=== PATIENT | male | born 1980 | race Caucasian/White ===

== ENCOUNTER 2017-02-01 11:08 | Emergency (ER) | payer BC ==
[2017-02-01 11:21] VITALS: BP 131/72; PULSE 71; RESP 16; TEMP 97.7
--- NOTE | 2017-02-01 11:33 | ED ---
ENT HPI - General Chief complaint: Dental/Oral [facility] Source: patient Mode of arrival: ambulatory Limitations: no limitations - History of Present Illness Initial comments: Patient is a 36-year-old male percents for evaluation for a "canker sore ". Past medical history as below. 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 This current outbreak has lasted over the last 2 days. States it is very tender. He is typically prescribed a medication called Dabecrotol which she describes as a chemical cautery. He is not been able to refill his prescription for it secondary to a shortage in the medication. He came here in hopes that we had some in the hospital to give him. He is tried uper-ghw-imclcfr remedies with limited relief. Denies any drooling, difficulty swallowing, change in voice. Denies any systemic symptoms such as fever, chills, headache and changes in vision, URI symptoms, shortness breath, cough, chest pain, nausea or vomiting, diarrhea , pain or burning with urination. - Related Data Home Medications Medication Instructions Recorded Confirmed Multivitamins, Thera [Multivitamin 1 tab PO DAILY 09/17/14 09/28/14 (formulary)] Previous Rx's Medication Instructions Recorded Hydrocodone/Acetaminophen [[place] 1 - 2 each PO Q6HR PRN #120 tab 09/29/14 5-325] Allergies Allergy/AdvReac Type Severity Reaction Status Date / Time No Known Allergies Allergy Verified 02/01/17 11:21 Review of Systems ROS Statement: Those systems with pertinent positive or pertinent negative responses have been documented in the HPI. ROS Other: All systems not noted in ROS Statement are negative. Past Medical History Additional Past Medical History / Comment(s): MIGRAINE HEADACHE History of Any Multi-Drug Resistant Organisms: None Reported Past Surgical History: No Surgical Hx Reported Additional Past Surgical History / Comment(s): neck surg cervical vertebrae Past Anesthesia/Blood Transfusion Reactions: No Reported Reaction Past Psychological History: No Psychological Hx Reported Smoking Status: Never smoker Past Alcohol Use History: Occasional Past Drug Use History: None Reported - Past Family History Mother Family Medical History: No Reported History General Exam Limitations: no limitations General appearance: alert, in no apparent distress Head exam: Present: atraumatic, normocephalic, normal inspection Eye exam: Present: normal appearance, PERRL, EOMI. Absent: scleral icterus, conjunctival injection, periorbital swelling ENT exam: Present: normal exam, mucous membranes moist, other (There is a shallow ulcer in the left lower lip with surrounding erythema consistent with HSV.) Neck exam: Present: normal inspection, other (No anterior lymph nodes). Absent : tenderness, meningismus, lymphadenopathy Respiratory exam: Present: normal lung sounds bilaterally. Absent: respiratory distress, wheezes, rales, rhonchi, stridor Cardiovascular Exam: Present: regular rate, normal rhythm, normal heart sounds. Absent: systolic murmur, diastolic murmur, rubs, gallop, clicks GI/Abdominal exam: Present: soft, normal bowel sounds. Absent: distended, tenderness, guarding, rebound, rigid Extremities exam: Present: normal inspection, full ROM, normal capillary refill. Absent: tenderness, pedal edema, joint swelling, calf tenderness Back exam: Present: normal inspection Neurological exam: Present: alert, oriented X3, CN II-XII intact Psychiatric exam: Present: normal affect, normal mood Skin exam: Present: warm, dry, intact, normal color. 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 Came an attempt to get a medication that is helped him in the past which we unfortunately do not have in the hospital. Discussed dorb-szs-hpzpsoa remedies. Frequent salt water rinses. We'll wait until next week until his prescription can be filled. I discussed signs and symptoms on when to return to the emergency department for further evaluation. Comfortable with discharge home and will follow-up. Disposition Clinical Impression: Canker sores oral Disposition: HOME SELF-CARE Condition: Good Instructions: Canker Sores (ED) Referrals: Fareed Jamil MD [Primary Care Provider] - 1-2 days
== END 2017-02-01 12:03 | disposition home or self-care (01) ==
LOC: EC 11:08
DX: K12.0 Recurrent oral aphthae (principal); Z79.899 Other long term (current) drug therapy
CPT/HCPCS: 99282

== ENCOUNTER 2018-02-23 03:44 | Emergency (ER) | payer BC ==
[2018-02-23 03:51] VITALS: RESP 20; TEMP 97.7
[2018-02-23] MEDS ORDERED: SODIUM CHLORIDE 0.9% 2,000 ML IV STA (04:08)
[2018-02-23] MEDS ORDERED: ONDANSETRON 4 MG/2 ML VIAL IVP STA (04:08)
--- NOTE | 2018-02-23 04:10 | ED ---
Nausea/Vomiting/Diarrhea HPI - General Chief complaint: Nausea/Vomiting/Diarrhea Stated complaint: Vomiting,/Diarrhea Time Seen by Provider: 02/23/18 04:08 Source: patient Mode of arrival: ambulatory Limitations: no limitations - History of Present Illness Initial comments: Patient is a previously healthy 37-year-old male who presents the emergency department today for evaluation of sudden onset of abdominal cramping, nausea, vomiting and diarrhea. Patient reports he was in his usual state of health throughout the day yesterday, he ran errands during the day and had dinner out at a restaurant. He returned home and went to bed and awoke suddenly at 2 AM with sudden onset of nausea, vomiting, abdominal cramping and diarrhea. She reports that this is persisted for 2 hours and is feeling quite unwell. He has no history of anything similar to this. No history of GI pathology, ulcerative colitis, Crohn's or irritable bowel. spica bedside ate at the same restaurant but did have different food, she is not having any similar symptoms. - Related Data Previous Rx's Medication Instructions Recorded Dicyclomine [Bentyl] 10 mg PO QID #30 capsule 02/23/18 Ondansetron Odt [Zofran Odt] 4 mg PO Q8HR PRN #30 tab 02/23/18 Allergies Allergy/AdvReac Type Severity Reaction Status Date / Time No Known Allergies Allergy Verified 02/23/18 03:51 Review of Systems ROS Statement: Those systems with pertinent positive or pertinent negative responses have been documented in the HPI. ROS Other: All systems not noted in ROS Statement are negative. Past Medical History Additional Past Medical History / Comment(s): MIGRAINE HEADACHE History of Any Multi-Drug Resistant Organisms: None Reported Past Surgical History: Back Surgery Additional Past Surgical History / Comment(s): neck surg cervical vertebrae Past Anesthesia/Blood Transfusion Reactions: No Reported Reaction Past Psychological History: No Psychological Hx Reported Smoking Status: Never smoker Past Alcohol Use History: Occasional Past Drug Use History: None Reported - Past Family History Mother Family Medical History: No Reported History General Exam - General Exam Comments Initial Comments: Physical Exam GENERAL: appears dehydrated HENT: Normocephalic, Atraumatic. EYES: PERRL, EOMI PULMONARY: Unlabored respirations. No audible rales rhonchi or wheezing was noted. CARDIOVASCULAR: There is a regular rate and rhythm without any murmurs gallops or rubs. ABDOMEN: Soft and nontender with normal bowel sounds. SKIN: Skin is ashen and diaphoretic : Deferred NEUROLOGIC: Patient is alert and oriented x3. Moving all extremities spontaneously MUSCULOSKELETAL: Normal extremities with adequate strength and full range of motion. No lower extremity swelling or edema. No calf tenderness. PSYCHIATRIC: Normal psychiatric evaluation. Limitations: no limitations Limitations: no limitations Course Vital Signs 02/23/18 02/23/18 03:48 06:16 Temperature 97.7 F Pulse Rate 89 63 Respiratory 20 20 Rate Blood Pressure 125/80 105/68 O2 Sat by Pulse 100 97 Oximetry Medical Decision Making - Medical Decision Making Patient was seen and evaluated, patient to be needed, dehydrated Gqxvj-xn-uaam glucose was obtained though the patient has no history of diabetes went to ensure that this was not a new onset as the patient does appear quite dehydrated and unwell glucose 136 Labs were ordered. IV fluid bolus and Zofran ordered Labs were unremarkable aside from mild leukocytosis likely reactive Patient was reevaluated after IV fluids and Zofran and Bentyl. Patient reports resolution of the crampy abdominal pain, significant improvement in his nausea though he is still nauseated. He reports burning epigastric discomfort and a feeling of a sour stomach which makes him feel as though he doesn't want to attempt to eat or drink anything. Pepcid Reglan and Benadryl were ordered. Significant improvement in his nausea after Reglan and Benadryl. Resting comfortably ready for discharge home. - Lab Data Result diagrams: 02/23/18 04:50 02/23/18 04:50 Lab Results 02/23/18 02/23/18 02/23/18 Range/Units 04:37 04:50 04:50 WBC 12.1 H (3.8-10.6) k/uL RBC 5.59 (4.30-5.90) m/uL Hgb 15.9 (13.0-17.5) gm/dL Hct 48.0 (39.0-53.0) % MCV 85.9 (80.0-100.0) fL MCH 28.5 (25.0-35.0) pg MCHC 33.1 (31.0-37.0) g/dL RDW 13.0 (11.5-15.5) % Plt Count 144 L (150-450) k/uL Neutrophils % 91 % Lymphocytes % 3 % Monocytes % 4 % Eosinophils % 1 % Basophils % 0 % Neutrophils # 11.0 H (1.3-7.7) k/uL Lymphocytes # 0.4 L (1.0-4.8) k/uL Monocytes # 0.5 (0-1.0) k/uL Eosinophils # 0.1 (0-0.7) k/uL Basophils # 0.0 (0-0.2) k/uL Sodium 140 (137-145) mmol/L Potassium 4.7 (3.5-5.1) mmol/L Chloride 105 (98-107) mmol/L Carbon Dioxide 22 (22-30) mmol/L Anion Gap 13 mmol/L BUN 20 (9-20) mg/dL Creatinine 1.06 (0.66-1.25) mg/dL Est GFR (CKD-EPI)AfAm >90 (>60 ml/min/1.73 sqM) Est GFR (CKD-EPI)NonAf 89 (>60 ml/min/1.73 sqM) Glucose 139 H (74-99) mg/dL POC Glucose (mg/dL) 130 H (75-99) mg/dL POC Glu Director [employer] ID Arft, Chaitanya Calcium 9.9 (8.4-10.2) mg/dL Total Bilirubin 1.0 (0.2-1.3) mg/dL AST 25 (17-59) U/L ALT 33 (21-72) U/L Alkaline Phosphatase 56 (38-126) U/L Total Protein 7.7 (6.3-8.2) g/dL Albumin 4.6 (3.5-5.0) g/dL Amylase 58 (30-110) U/L Lipase 30 (23-300) U/L Disposition Clinical Impression: Food poisoning Disposition: HOME SELF-CARE Condition: Good Instructions: Acute Nausea and Vomiting (ED) Prescriptions: Dicyclomine [Bentyl] 10 mg PO QID #30 capsule Ondansetron Odt [Zofran Odt] 4 mg PO Q8HR PRN #30 tab PRN Reason: Nausea Is patient prescribed a controlled substance at d/c from ED?: No Referrals: Fareed Jamil MD [Primary Care Provider] - 1-2 days
[2018-02-23 04:39] LABS: Glucose,Whole Blood 130 mg/dL (75-99)
[2018-02-23] MEDS ORDERED: DICYCLOMINE 10 MG/ML 2 ML AMP IM STA (04:49)
[2018-02-23 05:06] LABS: Basophils % (A) 0 %; Eosinophils # (A) 0.1 k/uL (0-0.7); Eosinophils % (A) 1 %; HGB 15.9 gm/dL (13.0-17.5); Lymphocytes # (A) 0.4 k/uL (1.0-4.8); Lymphocytes % (A) 3 %; MCH 28.5 pg (25.0-35.0); MCHC 33.1 g/dL (31.0-37.0); MCV 85.9 fL (80.0-100.0); Mean Platelet Volume 8.5; Monocytes # (A) 0.5 k/uL (0-1.0); Monocytes % (A) 4 %; Neutrophils % (A) 91 %; Platelet Count 144 k/uL (150-450); RBC 5.59 m/uL (4.30-5.90); WBC 12.1 k/uL (3.8-10.6)
[2018-02-23 05:19] LABS: ALT 33 U/L (21-72); AST 25 U/L (17-59); Albumin 4.6 g/dL (3.5-5.0); Alkaline Phosphatase 56 U/L (38-126); Amylase 58 U/L (30-110); Anion Gap 13 mmol/L; Blood Urea Nitrogen 20 mg/dL (9-20); Calcium 9.9 mg/dL (8.4-10.2); Carbon Dioxide 22 mmol/L (22-30); Chloride 105 mmol/L (98-107); Glucose 139 mg/dL (74-99); Lipase 30 U/L (23-300); Potassium 4.7 mmol/L (3.5-5.1); Sodium 140 mmol/L (137-145); Total Protein 7.7 g/dL (6.3-8.2)
[2018-02-23] MEDS ORDERED: METOCLOPRAMIDE 5 MG/ML 2 ML VIAL IVP STA (05:52)
[2018-02-23] MEDS ORDERED: FAMOTIDINE 20 MG/2 ML VIAL IV STA (05:52)
[2018-02-23] MEDS ORDERED: diphenhydrAMINE 25 MG CAP PO STA (05:52)
[2018-02-23 06:17] VITALS: BP 105/68; PULSE 63
== END 2018-02-23 07:15 | disposition home or self-care (01) ==
LOC: EC 03:44
DX: A05.9 Bacterial foodborne intoxication, unspecified (principal); D72.829 Elevated white blood cell count, unspecified; E86.0 Dehydration; R61 Generalized hyperhidrosis
CPT/HCPCS: 36415; 80053; 82150; 83690; 85025; 99283; 96374; 96375 ×2; 96361 ×2; 96372; J0500; J2765; J2405

== ENCOUNTER 2018-06-06 23:19 | Emergency (ER) | payer BC ==
[2018-06-06 23:24] VITALS: TEMP 97.4
[2018-06-07] MEDS ORDERED: HYDROmorphone 0.5 MG/0.5 ML SYRINGE IVP STA ×2 (00:20→02:30)
[2018-06-07] MEDS ORDERED: DIAZEPAM 5 MG TAB PO STA (00:20)
[2018-06-07 01:36] LABS: Basophils % (A) 0 %; Eosinophils # (A) 0.1 k/uL (0-0.7); Eosinophils % (A) 1 %; HCT 42.5 % (39.0-53.0); HGB 14.2 gm/dL (13.0-17.5); Lymphocytes # (A) 1.6 k/uL (1.0-4.8); Lymphocytes % (A) 16 %; MCH 28.5 pg (25.0-35.0); MCHC 33.5 g/dL (31.0-37.0); Mean Platelet Volume 8.3; Monocytes # (A) 0.5 k/uL (0-1.0); Monocytes % (A) 5 %; Neutrophils # (A) 7.9 k/uL (1.3-7.7); Neutrophils % (A) 78 %; Platelet Count 155 k/uL (150-450); WBC 10.1 k/uL (3.8-10.6)
[2018-06-07 01:43] LABS: ALT 34 U/L (21-72); AST 20 U/L (17-59); Alkaline Phosphatase 59 U/L (38-126); Anion Gap 10 mmol/L; Blood Urea Nitrogen 12 mg/dL (9-20); Calcium 9.4 mg/dL (8.4-10.2); Carbon Dioxide 24 mmol/L (22-30); Chloride 104 mmol/L (98-107); Glucose 116 mg/dL (74-99); Potassium 4.3 mmol/L (3.5-5.1); Sodium 138 mmol/L (137-145); Total Bilirubin 0.6 mg/dL (0.2-1.3); Total Protein 6.8 g/dL (6.3-8.2)
--- NOTE | 2018-06-07 02:29 | ED ---
General Adult HPI - General Source: patient Mode of arrival: ambulatory Limitations: no limitations <Danielle Dotson - Last Filed: 06/07/18 02:37> <Nita aGrcia - Last Filed: 06/07/18 21:11> - General Chief complaint: Headache Stated complaint: Migraine/Bilateral Arm Tingling Time Seen by Provider: 06/06/18 23:40 - History of Present Illness Initial comments: 37yo male presents today for complaints. Patient states that he has history of chronic migraines which are often associated with nausea. Patient states around 3:30 PM he gradually began to develop one of his when he was described typical migraines. Patient states is throbbing pain with no radiation, he expresses photophobia and mild nausea. Patient denies vomiting, head injury. Patient states he has had chronic neck pain with previous surgery in 2014. Patient states today on and off his experienced paresthesias of the upper extremities he denies loss sensation muscle weakness, speech changes gait changes, diplopia or vision loss. He denies this being the worst headache of his life. Patient states he frequently experiences headaches that last longer than 12 hours. Patient has had previous MRI, since she was told he did not have any aneurysms. In addition patient states that on and off throughout the day he has had some shortness of breath he states at that time he felt anxious he's not sure if that is associated with the migraine. Patient denies any chest pain, back pain lower extremity edema recent travel history of cancer, history of DVT or PE, clotting disorder. She denies experienced this in the past. Patient denies history of diabetes hypertension. Patient is a lifelong time nonsmoker. Patient denies family history of myocardial infarction prior to the age of 50. Patient denies any upper respiratory symptoms cough fever chills or night sweats. Remaining review of system negative, patient denies any recent abdominal pain, dysuria or hematuria, constipation or diarrhea, or any other complaints. (Danielle Dotson) - Related Data Previous Rx's Medication Instructions Recorded Dicyclomine [Bentyl] 10 mg PO QID #30 capsule 02/23/18 Ondansetron Odt [Zofran Odt] 4 mg PO Q8HR PRN #30 tab 02/23/18 Allergies Allergy/AdvReac Type Severity Reaction Status Date / Time No Known Allergies Allergy Verified 06/06/18 23:24 Review of Systems ROS Other: All systems not noted in ROS Statement are negative. <Danielle Dotson - Last Filed: 06/07/18 02:37> ROS Other: All systems not noted in ROS Statement are negative. <Nita Garcia - Last Filed: 06/07/18 21:11> ROS Statement: Those systems with pertinent positive or pertinent negative responses have been documented in the HPI. Past Medical History Additional Past Medical History / Comment(s): MIGRAINE HEADACHE History of Any Multi-Drug Resistant Organisms: None Reported Past Surgical History: Back Surgery Additional Past Surgical History / Comment(s): neck surg cervical vertebrae Past Anesthesia/Blood Transfusion Reactions: No Reported Reaction Past Psychological History: No Psychological Hx Reported Smoking Status: Never smoker Past Alcohol Use History: Occasional Past Drug Use History: None Reported - Past Family History Mother Family Medical History: No Reported History <Danielle Dotson - Last Filed: 06/07/18 02:37> General Exam Limitations: no limitations <Danielle Dotson - Last Filed: 06/07/18 02:37> - General Exam Comments Initial Comments: General: The patient is awake and alert, in no distress, and does not appear acutely ill. Eye: +3mm pupils are equal, round and reactive to light, extra-ocular movements are intact. No nystagmus. No APD, no disconjugate gaze. Mild photophobia. There is normal conjunctiva bilaterally. No signs of icterus. Ears, nose, mouth and throat: There are moist mucous membranes and no oral lesions. Neck: The neck is supple, there is no tenderness or JVD. Cardiovascular: There is a regular rate and rhythm. No murmur, rub or gallop is appreciated. Respiratory: Lungs are clear to auscultation, respirations are non-labored, breath sounds are equal. No wheezes, stridor, rales, or rhonchi. Gastrointestinal: Soft, non-distended, non-tender abdomen without masses or organomegaly noted. There is no rebound or guarding present. Musculoskeletal: Normal ROM, no tenderness. Strength 5/5. Sensation intact. Radial pulses equal bilaterally 2+. Neurological: A&O x 3. CN II-XII intact, memory intact to immediately, interme diate and care home recall. Able to follow simple verbal. Able to name a common object (pen). High quality, labial (pa) and lingual (la) speech. Low quality posterior pharynx/larynx (ga) voice sounds. Able to express general knowledge (days in a week). No hemineglect or inattention noted. Finger agnosia (-) and spatially oriented. Light touch and temperature sensation present over the face, chest, abdomen, back, UE bilaterally, and LE bilaterally. Able to localize point during point localization b/l and extinction. No visible bulk atrophy, hypertrophy, fasciculations, or myoclonus of the UE or LE b/l. Full PROM in UE and LE b/l. Bilateral muscle strength 5/5 for the following muscles: deltoid, biceps, triceps, brachioradialis, wrist extensors/flexor, hip flexor, hip abductors/adductors, hamstrings, quadriceps, feet dorsiflexors/plantar flexors. Finger to nose, finger to the examiners finger, and heel to dang coordinated and accurate b/l. . Gait is coordinated and even in stride with tandem, toe and heel walk. Maintains balance with monopedal stance. (-) Romberg. (-) pronator drift. No nuchal rigidity. Skin: Skin is warm and dry and no rashes or lesions are noted. Psychiatric: Cooperative, appropriate mood & affect, normal judgment. (Danielle Dotson) Course Vital Signs 06/06/18 06/07/18 23:21 02:38 Temperature 97.4 F L Pulse Rate 72 62 Respiratory 18 16 Rate Blood Pressure 121/84 99/58 O2 Sat by Pulse 100 94 L Oximetry EKG Findings - EKG Comments: EKG Findings:: A 12-lead EKG was performed and shows the following: Rate is 78bpm, and rhythm is normal sinus with sinus arrhythmia. There are normal QRS complexes and normal R-wave progression. ST segments have no elevation or depression, and MD segments appear normal. MD interval 192 ms, QRS duration 96 ms, QT/QTC 408/465 ms. <Danielle Dotson - Last Filed: 06/07/18 02:37> Medical Decision Making - Lab Data Result diagrams: 06/07/18 00:37 06/07/18 00:37 <Danielle Dotson - Last Filed: 06/07/18 02:37> - Lab Data Result diagrams: 06/07/18 00:37 06/07/18 00:37 <Nita Garcia - Last Filed: 06/07/18 21:11> - Medical Decision Making 37-year-old male presenting for multiple complaints. Patient states characters difficulty is identical to that of his typical migraines. Patient has no focal neurological deficits. No fever or nuchal rigidity. Patient denies any current shortness of breath. Patient states he did have anxiety coinciding with shortness of breath experienced earlier. Heart Score 1. Wells for PE score 0. PERC (-). Vital signs within acceptable limits. No acute EKG findings. Patient appears well oxygen eating well room air. No signs of respiratory distress, lungs clear to auscultation. Patient states Dilaudid had previously helped with migraines. Upon reevaluation patient states symptoms are improving. Patient requesting discharge. At this time to be no concerning physical examination findings, description of migraine consistent with patient's previous chronic migraines, and low suspicion for acute cardiopulmonary process for etiology of shortness of breath experienced earlier this afternoon, which could have been atributed to anxiety as well as the UE parathesias, cervical radiculopathy not excluded as patient has mild midline tenderness of c-spine with previous cervical spine surgery. No history of trauma. I feel patient is st able for discharge. I discussed case with attending provider Dr. Garcia agreeable with plan of care at this time. patient is agreeable with plan of care, return parameters. He denies questions at this time. I instructed patient to follow-up with primary care provider in the next 1-2 days. Patient discharged appearing well (Danielle Dotson) I was available for consultation in the emergency department. The history and physical exam were done by the midlevel provider. I was consulted for this patient's care. I reviewed the case with the midlevel provider and based on their presentation of the patient, I agree with the assessment, medical decision making and plan of care as documented. (Nita Garcia) - Lab Data Lab Results 06/07/18 06/07/18 06/07/18 Range/Units 00:37 00:37 00:37 WBC 10.1 (3.8-10.6) k/uL RBC 5.00 (4.30-5.90) m/uL Hgb 14.2 (13.0-17.5) gm/dL Hct 42.5 (39.0-53.0) % MCV 85.0 (80.0-100.0) fL MCH 28.5 (25.0-35.0) pg MCHC 33.5 (31.0-37.0) g/dL RDW 13.0 (11.5-15.5) % Plt Count 155 (150-450) k/uL Neutrophils % 78 % Lymphocytes % 16 % Monocytes % 5 % Eosinophils % 1 % Basophils % 0 % Neutrophils # 7.9 H (1.3-7.7) k/uL Lymphocytes # 1.6 (1.0-4.8) k/uL Monocytes # 0.5 (0-1.0) k/uL Eosinophils # 0.1 (0-0.7) k/uL Basophils # 0.0 (0-0.2) k/uL Sodium 138 (137-145) mmol/L Potassium 4.3 (3.5-5.1) mmol/L Chloride 104 (98-107) mmol/L Carbon Dioxide 24 (22-30) mmol/L Anion Gap 10 mmol/L BUN 12 (9-20) mg/dL Creatinine 0.86 (0.66-1.25) mg/dL Est GFR (CKD-EPI)AfAm >90 (>60 ml/min/1.73 sqM) Est GFR (CKD-EPI)NonAf >90 (>60 ml/min/1.73 sqM) Glucose 116 H (74-99) mg/dL Calcium 9.4 (8.4-10.2) mg/dL Total Bilirubin 0.6 (0.2-1.3) mg/dL AST 20 (17-59) U/L ALT 34 (21-72) U/L Alkaline Phosphatase 59 (38-126) U/L Troponin I <0.012 (0.000-0.034) ng/mL Total Protein 6.8 (6.3-8.2) g/dL Albumin 4.0 (3.5-5.0) g/dL Disposition Is patient prescribed a controlled substance at d/c from ED?: No Time of Disposition: 02:27 <Danielle Dotson - Last Filed: 06/07/18 02:37> <Nita Garcia P - Last Filed: 06/07/18 21:11> Clinical Impression: Headache, Paresthesia of upper extremity, Shortness of breath Disposition: HOME SELF-CARE Condition: Good Instructions (If sedation given, give patient instructions): Acute Headache (ED) Referrals: Fareed Jamil MD [Primary Care Provider] - 1-2 days
[2018-06-07] MEDS ORDERED: diphenhydrAMINE 50 MG/ML 1 ML VIAL IVP STA (02:31)
[2018-06-07 02:43] VITALS: BP 99/58; PULSE 62; RESP 16
--- NOTE | 2018-06-07 04:00 | ED ---
General Adult HPI - General Chief complaint: Headache Stated complaint: Migraine/Bilateral Arm Tingling Time Seen by Provider: 06/06/18 23:40 Source: patient Mode of arrival: ambulatory Limitations: no limitations - History of Present Illness Initial comments: 37-year-old male with past medical history of migraine and previous cervical surgery presenting today for cc of headache, and on off b/l UE tingling. Patient states that he has had a migraine for about 4 hours he states it feel identical in characteristic to his previous migraine headaches. Patient states that they usually last about 7 hours or more. Denies sudden onset/ worst headache of his life. He also states that normally medications do not help alleviate the headache. He states sometimes Dilaudid helped. Patient states he has had extensive neurolgy workup and states he has no history of aneurysm. Patient states this is not what brought him to the emergency department this evening. He states during headache he had some neck pain and b/l UE tingling that has since resolved he also states he felt anxious and SOB he states this has since resolved. He denies diabetes, hypertension, previous PA, dyspnea on exertion, chest pain, back pain, nausea, vomiting, indigestion, jaw pain, shoulder pain, arm pain, recent travel, leg swelling. He states his was concerned of the symptoms and presented for evaluation. Patient denies diplopia, vision loss, weakness of the upper or lower extremities, facial asymmetry, speech or gait changes he denies dizziness, fever chills or night sweats, IV drug use. Remaining ROS (-). Upon arrival patient appears well, notoxic. No distress. - Related Data Previous Rx's Medication Instructions Recorded Dicyclomine [Bentyl] 10 mg PO QID #30 capsule 02/23/18 Ondansetron Odt [Zofran Odt] 4 mg PO Q8HR PRN #30 tab 02/23/18 Allergies Allergy/AdvReac Type Severity Reaction Status Date / Time No Known Allergies Allergy Verified 06/06/18 23:24 Review of Systems ROS Statement: Those systems with pertinent positive or pertinent negative responses have been documented in the HPI. ROS Other: All systems not noted in ROS Statement are negative. Past Medical History Additional Past Medical History / Comment(s): MIGRAINE HEADACHE History of Any Multi-Drug Resistant Organisms: None Reported Past Surgical History: Back Surgery Additional Past Surgical History / Comment(s): neck surg cervical vertebrae Past Anesthesia/Blood Transfusion Reactions: No Reported Reaction Past Psychological History: No Psychological Hx Reported Smoking Status: Never smoker Past Alcohol Use History: Occasional Past Drug Use History: None Reported - Past Family History Mother Family Medical History: No Reported History General Exam - General Exam Comments Initial Comments: General: The patient is awake and alert, in no distress, and does not appear acutely ill. Eye: +3 mm pupils are equal, round and reactive to light, extra-ocular movements are intact. No nystagmus. There is normal conjunctiva bilaterally. No signs of icterus. Mild photophobia Ears, nose, mouth and throat: There are moist mucous membranes and no oral lesions. Oropharynx was not erythematous there is no tonsillar enlargement exudates or lesions. Uvula midline. Tympanic membranes are not erythematous or is no effusions bulging or retraction. No tenderness to palpation of the mastoid. No anterior cervical lymphadenopathy. Rhinorrhea, clear and bilateral nares. No tripoding, no drooling. Neck: The neck is supple, there is no tenderness or JVD. No nuchal rigidity negative Brudzinski and Kernig Cardiovascular: There is a regular rate and rhythm. No murmur, rub or gallop is appreciated. Respiratory: Lungs are clear to auscultation, respirations are non-labored, breath sounds are equal. No wheezes, stridor, rales, or rhonchi. No retractions or abdominal breathing. Gastrointestinal: Soft, non-distended, non-tender abdomen without masses or organomegaly noted. There is no rebound or guarding present. Bowel sounds are unremarkable. Musculoskeletal: Normal ROM, no tenderness. Strength 5/5. Sensation intact. Radial pulses equal bilaterally 2+. Neurological: A&O x 3. CN II-XII intact, memory intact to immediately, intermediate and rodent exterminator recall. Able to follow simple verbal. Able to name a common object (pen). High quality, labial (pa) and lingual (la) speech. Low quality posterior pharynx/larynx (ga) voice sounds. Able to express general knowledge (days in a week). No hemineglect or inattention noted. Finger agnosia (-) and spatially oriented (identified L index finger touched R shoulder with L index finger). Light touch and temperature sensation present over the face, chest, abdomen, back, UE bilaterally, and LE bilaterally. Able to localize point during point localization b/l and extinction. No visible bulk atrophy, hypertrophy, fasciculations, or myoclonus of the UE or LE b/l. Full PROM in UE and LE b/l. Bilateral muscle strength 5/5 for the following muscles: deltoid, biceps, triceps, brachioradialis, wrist extensors/flexor, hip flexor, hip abductors/adductors, hamstrings, quadriceps, feet dorsiflexors/plantar flexors. Finger to nose, finger to the examiners finger, and heel to dang coordinated and accurate b/l. Coordinated and even demonstration of hand flip, finger to thumb, and toe tap b/l. . Gait is coordinated and even in stride with tandem, toe and heel walk. Maintains balance with monopedal stance. (-) Romberg. (-) pronator drift. No nuchal rigidity. (-) Brudzinskis and Kernig signs. Skin: Skin is warm and dry and no rashes or lesions are noted. No extremity edema. (-) Homans. Psychiatric: Cooperative Limitations: no limitations Course Vital Signs 06/06/18 06/07/18 23:21 02:38 Temperature 97.4 F L Pulse Rate 72 62 Respiratory 18 16 Rate Blood Pressure 121/84 99/58 O2 Sat by Pulse 100 94 L Oximetry Medical Decision Making - Medical Decision Making 37-year-old male presenting for multiple complaints. Patient states his migraine characteristic is similar to that of his typical migraines denies any changes or concerns. Denies sudden onset of being worse headache of his life. Patient given Dilaudid, states he had significant improvement with Dilaudid and Valium. Patient given additional dose. No focal neurological deficits. No concerning history, or red flags. Heart Score 1. Wells criteria for PE 0. PERC (-). No recent surgery, hx of cancer, immobilization. Pt EKG and CXR no acute findings troponin (-). I feel parathesias may be due to anxiety, vs radiculopathy or complex migraine. Pt has minimal risk factors for atherosclerotic disease. Patient is requesting discharge. After discussing case with attending Dr. Garcia I feel patient is stable for discharge with outpati ent f/u. Pt symptoms improved upon multiple reevaluation. Return parameters were discussed at length with patient he verbalized understanding. Pt discharged appearing well. Denies questions at htis time. Pt is to f/u with pcp in 1-2 days. - Lab Data Result diagrams: 06/07/18 00:37 06/07/18 00:37 Lab Results 06/07/18 06/07/18 06/07/18 Range/Units 00:37 00:37 00:37 WBC 10.1 (3.8-10.6) k/uL RBC 5.00 (4.30-5.90) m/uL Hgb 14.2 (13.0-17.5) gm/dL Hct 42.5 (39.0-53.0) % MCV 85.0 (80.0-100.0) fL MCH 28.5 (25.0-35.0) pg MCHC 33.5 (31.0-37.0) g/dL RDW 13.0 (11.5-15.5) % Plt Count 155 (150-450) k/uL Neutrophils % 78 % Lymphocytes % 16 % Monocytes % 5 % Eosinophils % 1 % Basophils % 0 % Neutrophils # 7.9 H (1.3-7.7) k/uL Lymphocytes # 1.6 (1.0-4.8) k/uL Monocytes # 0.5 (0-1.0) k/uL Eosinophils # 0.1 (0-0.7) k/uL Basophils # 0.0 (0-0.2) k/uL Sodium 138 (137-145) mmol/L Potassium 4.3 (3.5-5.1) mmol/L Chloride 104 (98-107) mmol/L Carbon Dioxide 24 (22-30) mmol/L Anion Gap 10 mmol/L BUN 12 (9-20) mg/dL Creatinine 0.86 (0.66-1.25) mg/dL Est GFR (CKD-EPI)AfAm >90 (>60 ml/min/1.73 sqM) Est GFR (CKD-EPI)NonAf >90 (>60 ml/min/1.73 sqM) Glucose 116 H (74-99) mg/dL Calcium 9.4 (8.4-10.2) mg/dL Total Bilirubin 0.6 (0.2-1.3) mg/dL AST 20 (17-59) U/L ALT 34 (21-72) U/L Alkaline Phosphatase 59 (38-126) U/L Troponin I <0.012 (0.000-0.034) ng/mL Total Protein 6.8 (6.3-8.2) g/dL Albumin 4.0 (3.5-5.0) g/dL Disposition Clinical Impression: Headache, Paresthesia of upper extremity, Shortness of breath Disposition: HOME SELF-CARE Condition: Good Instructions (If sedation given, give patient instructions): Acute Headache (ED) Is patient prescribed a controlled substance at d/c from ED?: No Referrals: Fareed Jamil MD [Primary Care Provider] - 1-2 days Time of Disposition: 04:09 (initial document information was lost on 06/07/18.)
--- NOTE | 2018-06-07 08:59 | XR ---
EXAMINATION TYPE: XR chest 2V DATE OF EXAM: 06/07/2018 COMPARISON: 09/21/2014 TECHNIQUE: PA and lateral views submitted. HISTORY: Pain FINDINGS:Preliminary report provided by stat rad The lungs are clear and there is no pneumothorax, pleural effusion, or focal pneumonia. Postsurgica l change overlying cervical spine. No overt failure. IMPRESSION: 1. No acute process.
== END 2018-06-07 02:43 | disposition home or self-care (01) ==
LOC: EC 23:19
DX: G43.909 Migraine, unspecified, not intractable, without status migrainosus (principal); R20.2 Paresthesia of skin; R06.02 Shortness of breath
CPT/HCPCS: 36415; 71046; 80053; 84484; 85025; 93005; 96374; 96375; 96376; 99283

== ENCOUNTER → 2018-06-06 | Outpatient (CLI) | payer BC ==
--- NOTE | 2018-06-06 19:43 | CONS ---
CONSULTATION DATE OF SERVICE: 06/06/2018 This patient is a 37-year-old gentleman who has been evaluated in the sleep center for possible obstructive sleep apnea-hypopnea syndrome. HISTORY OF PRESENT ILLNESS/SLEEP-WAKE EVALUATION: Patient's usual sleep schedule on working days is from 10:30 p.m. until 5:30 a.m., on weekends from 11:30 p.m. to 8:30 a.m. No problems with falling asleep. No TV in the bedroom. Patient prefers to sleep on the side position. He sleeps with his with witnessed snoring. Occasionally the patient wakes up from sleep with nocturia. No history of hypnagogic hallucinations, sleep paralysis or cataplexy. Patient rarely takes any naps. If he does, he may see vivid dreams. [place] Sleepiness Scale is 4. PAST MEDICAL HISTORY: Recently patient was observed to have irregular heart beats. Neck problems. Episodes of headaches, including migraine headaches. PAST SURGICAL HISTORY: Status post neck surgery for disc rupture. MEDICATIONS: None. SOCIAL HISTORY: Negative for smoking. Alcohol consumption occasional. FAMILY HISTORY: Hyperlipidemia, snoring, headaches, cancer. REVIEW OF SYSTEMS: Snoring, sometimes awakenings from sleep, episodes of headaches. PHYSICAL EXAMINATION: GENERAL: A pleasant gentleman without distress. VITAL SIGNS: BP 125/76, HR 69, RR 16, height 6 feet 3-1/2 inches, weight 229 pounds. Body mass index 28.2, oxygen saturation at room air 98%, temperature 98.5. HEENT: PERRLA, EOMI. Evaluation of oropharynx showed tongue protrudes midline. Moderately low position of soft palate. Mallampati III. NECK: Supple. No JVD. Thyroid is not palpable. LUNGS: Clear to percussion and to auscultation. Good air exchange. No wheezing or rhonchi. HEART: S1, S2 skipping beats. ABDOMEN: Soft and nontender. Bowel sounds are present. No organomegaly. EXTREMITIES: No clubbing or cyanosis. 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 Cranial nerves 2 to 7 intact. There is no fasciculation or atrophy. noted. No focal deficits observed. IMPRESSION: 1. Snoring, low position of soft palate, episodes of awakenings from sleep; possible obstructive sleep apnea-hypopnea syndrome. 2. Episodes of skipping beats by auscultation of the heart. 3. Status post neck surgery for disc rupture. 4. Episodes of headaches and migraines. PLAN: 1. Polysomnography for evaluation of patient's breathing during sleep. 2. CPAP/BiPAP titration if sleep study confirms obstructive sleep apnea-hypopnea syndrome. 3. Preferable position during sleep on the side. 4. No driving if patient feels any sleepiness. 5. I will see patient for follow up visit to explain results of testing and following plan. Thank you very much for referring this patient for consultation. Sincerely, Niraj Ruiz MD, PhD, FAASM Diplomat of [place] [employer] [employer] Early Childhood Coordinator of [facility] [place] MMODL / IJN: [id number] /
== END | disposition home or self-care (01) ==
LOC: SLEEP 16:22
PROVIDERS: ATTEND Internal Medicine
DX: R06.83 Snoring (principal); M27.8 Other specified diseases of jaws; I49.9 Cardiac arrhythmia, unspecified; Z86.69 Personal history of other diseases of the nervous system and sense organs; Z98.890 Other specified postprocedural states
CPT/HCPCS: 99211

== ENCOUNTER 2018-08-04 23:14 | Observation (INO) | payer BC ==
[2018-08-04 23:23] VITALS: RESP 18
[2018-08-04] MEDS ORDERED: ONDANSETRON 4 MG/2 ML VIAL IVP STA (23:46)
[2018-08-04] MEDS ORDERED: SODIUM CHLORIDE 0.9% 1,000 ML IV ONE (23:46)
[2018-08-04] MEDS ORDERED: DICYCLOMINE 20 MG TAB PO STA (23:46)
--- NOTE | 2018-08-04 23:49 | ED ---
Abdominal Pain HPI - General Source: patient Mode of arrival: ambulatory Limitations: no limitations <Alondra Medrano - Last Filed: 08/05/18 01:27> <Nita Garcia - Last Filed: 08/05/18 07:24> - General Chief Complaint: Abdominal Pain Stated Complaint: Nausea Time Seen by Provider: 08/04/18 23:41 - History of Present Illness Initial Comments: 38-year-old male presenting with sudden onset nausea and abdominal cramping that began 45 minutes prior to arrival. Patient denies any vomiting or diarrhea. He admits to generalized abdominal cramping. Patient states he normally gets symptoms like this with migraines but has no headache at this time. It is were out to dinner that she is asymptomatic. He denies history of inflammatory bowel disease or colonoscopy. (Alondra Medrano) - Related Data Previous Rx's Medication Instructions Recorded Dicyclomine [Bentyl] 10 mg PO QID #30 capsule 02/23/18 Ondansetron Odt [Zofran Odt] 4 mg PO Q8HR PRN #30 tab 02/23/18 Allergies Allergy/AdvReac Type Severity Reaction Status Date / Time No Known Allergies Allergy Verified 08/04/18 23:23 Review of Systems ROS Other: All systems not noted in ROS Statement are negative. <Alondra Medrano - Last Filed: 08/05/18 01:27> ROS Other: All systems not noted in ROS Statement are negative. <Nita Garcia - Last Filed: 08/05/18 07:24> ROS Statement: Those systems with pertinent positive or pertinent negative responses have been documented in the HPI. Review of Systems Constitutional: Denies fever, chills Eyes: Denies change in vision, Denies pain Ears, nose, mouth, throat: Denies headaches, Denies sore throat Cardiovascular: Denies chest pain. Denies palpitations Respiratory: Denies shortness of breath, Denies cough Gastrointestinal: Positive abdominal pain. Positive nausea, denies vomiting, diarrhea. Genitourinary: Denies hematuria, Denies infections Musculoskeletal: Denies pain, Denies swelling Integumentary: Denies rash Neurological: Denies headache, focal weakness, focal numbness Psychiatric: Denies anxiety, Denies depression Hematologic/Lymphatic: Denies easy bleeding or bruising (Alondra Medrano) Past Medical History Additional Past Medical History / Comment(s): MIGRAINE HEADACHE History of Any Multi-Drug Resistant Organisms: None Reported Past Surgical History: Back Surgery Additional Past Surgical History / Comment(s): neck surg cervical vertebrae Past Anesthesia/Blood Transfusion Reactions: No Reported Reaction Past Psychological History: No Psychological Hx Reported Smoking Status: Never smoker Past Alcohol Use History: Occasional Past Drug Use History: None Reported - Past Family History Mother Family Medical History: No Reported History <Alondra Medrano - Last Filed: 08/05/18 01:27> - Past Family History Father Family Medical History: Cancer Additional Family Medical History / Comment(s): Skin cancer removed <Nita Garcia - Last Filed: 08/05/18 07:24> General Exam Limitations: no limitations <Alondra Medrano - Last Filed: 08/05/18 01:27> - General Exam Comments Initial Comments: General: Awake, alert, No acute Distress HENT: Normocephalic. Atraumatic Eyes: PERRL. EOMI. No scleral icterus. No injected conjunctiva Neck: Full ROM Chest/Lungs: Clear to auscultation bilaterally. No wheezing, rhonchi, or rales Cardiac: Regular rate, rhythm. No murmurs or rubs Abdomen/GI: Soft, epigastric and LUQ tenderness, nondistended. No Mcburney's tenderness. No rebound, guarding, or rigidity. Musculoskeletal: Full ROM Skin: Warm, dry, intact Neurologic: A/Ox3, no weakness, no sensory deficit, no abnormal gait, no coordination deficit (Alondra Medrano) Course Vital Signs 08/04/18 08/05/18 23:19 02:25 Temperature 97.7 F 97.9 F Pulse Rate 71 60 Respiratory 18 18 Rate Blood Pressure 139/79 116/75 O2 Sat by Pulse 100 100 Oximetry Medical Decision Making - Lab Data Result diagrams: 08/05/18 00:03 08/05/18 00:03 <Alondra Medrano - Last Filed: 08/05/18 01:27> - Lab Data Result diagrams: 08/05/18 00:03 08/05/18 00:03 <Nita Garcia - Last Filed: 08/05/18 07:24> - Medical Decision Making 38 yoM presenting with abdominal pain. On initial exam the patient is awake and alert. VSS. Labratory workup unremarkable. Patient continued to have pain and therefore CT was ordered. (Alondra Medrano) care was signed out to me by Dr. Medrano. Patient had presented with abdominal pain, improved mildly with Toradol Zofran and Bentyl. Computed to mography scan was ordered and resulted with a possible very early appendicitis with an appendix measuring 9 mm with minimal surrounding fat stranding. I reevaluated patient who was sitting in bed he reported minimal pain when he doesn't move but still had some discomfort with palpation. Patient care was discussed with general surgeon research nurse practitioner Dr. Iglesias who agrees with plan for observation, serial abdominal exam and repeat labs in the morning. (Nita Garcia) - Lab Data Lab Results 08/05/18 08/05/18 Range/Units 00:03 00:03 WBC 8.3 (3.8-10.6) k/uL RBC 5.12 (4.30-5.90) m/uL Hgb 14.9 (13.0-17.5) gm/dL Hct 43.2 (39.0-53.0) % MCV 84.4 (80.0-100.0) fL MCH 29.1 (25.0-35.0) pg MCHC 34.5 (31.0-37.0) g/dL RDW 14.2 (11.5-15.5) % Plt Count 150 (150-450) k/uL Neutrophils % 55 % Lymphocytes % 34 % Monocytes % 6 % Eosinophils % 2 % Basophils % 0 % Neutrophils # 4.6 (1.3-7.7) k/uL Lymphocytes # 2.9 (1.0-4.8) k/uL Monocytes # 0.5 (0-1.0) k/uL Eosinophils # 0.2 (0-0.7) k/uL Basophils # 0.0 (0-0.2) k/uL Sodium 138 (137-145) mmol/L Potassium 3.8 (3.5-5.1) mmol/L Chloride 108 H (98-107) mmol/L Carbon Dioxide 19 L (22-30) mmol/L Anion Gap 11 mmol/L BUN 17 (9-20) mg/dL Creatinine 0.95 (0.66-1.25) mg/dL Est GFR (CKD-EPI)AfAm >90 (>60 ml/min/1.73 sqM) Est GFR (CKD-EPI)NonAf >90 (>60 ml/min/1.73 sqM) Glucose 121 H (74-99) mg/dL Calcium 9.9 (8.4-10.2) mg/dL Total Bilirubin 0.5 (0.2-1.3) mg/dL Conjugated Bilirubin 0.0 (0.0-0.3) mg/dL Unconjugated Bilirubin 0.5 (0.0-1.1) mg/dL Delta Bilirubin 0.0 (0.0-0.2) mg/dL AST 23 (17-59) U/L ALT 28 (21-72) U/L Alkaline Phosphatase 67 (38-126) U/L Total Protein 7.5 (6.3-8.2) g/dL Albumin 4.6 (3.5-5.0) g/dL Lipase 54 (23-300) U/L Disposition <Alondra Medrano E - Last Filed: 08/05/18 01:27> Is patient prescribed a controlled substance at d/c from ED?: No <Nita Garcia - Last Filed: 08/05/18 07:24> Clinical Impression: Abdominal pain Disposition: HOME SELF-CARE Condition: Stable
[2018-08-05 00:26] LABS: ALT 28 U/L (21-72); AST 23 U/L (17-59); Albumin 4.6 g/dL (3.5-5.0); Alkaline Phosphatase 67 U/L (38-126); Anion Gap 11 mmol/L; Bilirubin,Unconjugated 0.5 mg/dL (0.0-1.1); Blood Urea Nitrogen 17 mg/dL (9-20); Calcium 9.9 mg/dL (8.4-10.2); Carbon Dioxide 19 mmol/L (22-30); Chloride 108 mmol/L (98-107); Glucose 121 mg/dL (74-99); Lipase 54 U/L (23-300); Potassium 3.8 mmol/L (3.5-5.1); Sodium 138 mmol/L (137-145); Total Bilirubin 0.5 mg/dL (0.2-1.3); Total Protein 7.5 g/dL (6.3-8.2)
[2018-08-05 00:34] LABS: Basophils % (A) 0 %; Eosinophils # (A) 0.2 k/uL (0-0.7); Eosinophils % (A) 2 %; HCT 43.2 % (39.0-53.0); HGB 14.9 gm/dL (13.0-17.5); Lymphocytes # (A) 2.9 k/uL (1.0-4.8); Lymphocytes % (A) 34 %; MCH 29.1 pg (25.0-35.0); MCHC 34.5 g/dL (31.0-37.0); MCV 84.4 fL (80.0-100.0); Mean Platelet Volume 8.9; Monocytes # (A) 0.5 k/uL (0-1.0); Monocytes % (A) 6 %; Neutrophils # (A) 4.6 k/uL (1.3-7.7); Neutrophils % (A) 55 %; Platelet Count 150 k/uL (150-450); RBC 5.12 m/uL (4.30-5.90); RDW 14.2 % (11.5-15.5); WBC 8.3 k/uL (3.8-10.6)
[2018-08-05] MEDS ORDERED: ONDANSETRON 4 MG/2 ML VIAL IVP STA (00:36)
[2018-08-05] MEDS ORDERED: KETOROLAC 30 MG/ML 1 ML VIAL IVP STA (00:36)
--- NOTE | 2018-08-05 02:07 | CT ---
EXAM: CT Abdomen and Pelvis With Intravenous Contrast CLINICAL HISTORY: ITS.REASON CT Reason: Pain Patient presents with upper abdominal pain. TECHNIQUE: Axial computed tomography images of the abdomen and pelvis with intravenous contrast. CTDI is 10.5 mGy and DLP is 1063.3 mGy-cm. This CT exam was performed using one or more of the following dose reduction techniques: automated exposure control, adjustment of the mA and/or kV according to patient size, and/or use of iterative reconstruction technique. 100mL of isovue 300 COMPARISON: No relevant prior studies available. FINDINGS: Lung bases: Mild basilar atelectasis. 2 mm right lower lobe nodule. ABDOMEN: Liver: 8 mm liver low-density lesion with partial rim calcification. Nonspecific. Gallbladder and bile ducts: Contracted gallbladder. No calcified stones. No ductal dilation. Pancreas: Unremarkable. No mass. No ductal dilation. Spleen: Unremarkable. No splenomegaly. Adrenals: Unremarkable. No mass. Kidneys and ureters: Unremarkable. No solid mass. No hydronephrosis. Stomach and bowel: Unremarkable. No obstruction. No mucosal thickening. PELVIS: Appendix: Mildly enlarged appendix in the right lower quadrant, up to 9 mm. Query minimal surrounding fat stranding. Bladder: Unremarkable. No mass. Reproductive: Unremarkable as visualized. ABDOMEN and PELVIS: Intraperitoneal space: Unremarkable. No free air. No significant fluid collection. Bones/joints: No acute fracture. No dislocation. Small sclerotic lesion in the right iliac bone likely benign. Soft tissues: Small fat-containing umbilical and inguinal hernias. Vasculature: Unremarkable. No abdominal aortic aneurysm. Lymph nodes: Multiple small mesenteric nodes up to 7-8 mm. Nonspecific. IMPRESSION: 1. Mildly enlarged appendix in the right lower quadrant, up to 9 mm. May be normal versus early appendicitis. No free air or abscess. 2. Other incidental nonacute findings <MYCVCSECTION> Critical Value Communications 08/05/18 02:08 Call Doctor Regarding Appendicitis, called Dr. Garcia on 08/05 02:08 (-04:00)
[2018-08-05] MEDS ORDERED: ONDANSETRON 4 MG/2 ML VIAL IVP PRN (02:14)
[2018-08-05] MEDS ORDERED: NALOXONE 0.4 MG/ML 1 ML VIAL IV PRN (02:14)
[2018-08-05] MEDS: SODIUM CHLORIDE 0.9% 1,000 ML IV SCH ×2 (02:24→10:35)
[2018-08-05] MEDS ORDERED: MORPHINE SULFATE 4 MG/ML SYRINGE IVP STA (02:25)
[2018-08-05 05:18] VITALS: BP 111/71; PULSE 66; TEMP 96.4
[2018-08-05 09:19] LABS: ALT 25 U/L (21-72); AST 19 U/L (17-59); Albumin 3.7 g/dL (3.5-5.0); Alkaline Phosphatase 48 U/L (38-126); Anion Gap 5 mmol/L; Blood Urea Nitrogen 14 mg/dL (9-20); Calcium 9.1 mg/dL (8.4-10.2); Carbon Dioxide 23 mmol/L (22-30); Chloride 112 mmol/L (98-107); Glucose 91 mg/dL (74-99); Potassium 4.4 mmol/L (3.5-5.1); Sodium 140 mmol/L (137-145); Total Bilirubin 0.3 mg/dL (0.2-1.3); Total Protein 6.3 g/dL (6.3-8.2)
[2018-08-05 09:23] LABS: Basophils % (A) 0 %; Eosinophils # (A) 0.1 k/uL (0-0.7); Eosinophils % (A) 2 %; HCT 40.6 % (39.0-53.0); HGB 13.5 gm/dL (13.0-17.5); Lymphocytes # (A) 1.4 k/uL (1.0-4.8); Lymphocytes % (A) 22 %; MCH 28.6 pg (25.0-35.0); MCHC 33.1 g/dL (31.0-37.0); MCV 86.4 fL (80.0-100.0); Mean Platelet Volume 8.7; Monocytes # (A) 0.4 k/uL (0-1.0); Monocytes % (A) 7 %; Neutrophils # (A) 4.1 k/uL (1.3-7.7); Neutrophils % (A) 66 %; Platelet Count 137 k/uL (150-450); RDW 13.4 % (11.5-15.5); WBC 6.2 k/uL (3.8-10.6)
--- NOTE | 2018-08-05 10:33 | P.GSHP ---
History of Present Illness H&P Date: 08/05/18 Chief Complaint: Abdominal pain This a 38-year-old male who was admitted through the emergency room last night with complaints of abdominal pain. Patient describes generalized crampy abdominal pain he had some mild discomfort in the left lower right lower quadrant. Patient states he feels better today. He denies any significant pain. Past Medical History Additional Past Medical History / Comment(s): MIGRAINE HEADACHE History of Any Multi-Drug Resistant Organisms: None Reported Past Surgical History: Back Surgery Additional Past Surgical History / Comment(s): neck surg cervical vertebrae, steel bearing at C6 Past Anesthesia/Blood Transfusion Reactions: No Reported Reaction Past Psychological History: No Psychological Hx Reported Smoking Status: Never smoker Past Alcohol Use History: Occasional Past Drug Use History: None Reported - Past Family History Father Family Medical History: Cancer Additional Family Medical History / Comment(s): Skin cancer removed Mother Family Medical History: No Reported History Additional Family Medical History / Comment(s): Spine issues Medications and Allergies Home Medications Medication Instructions Recorded Confirmed Type Cholecalciferol [Vitamin D3 (25 1,000 unit PO DAILY 08/05/18 08/05/18 History Mcg = 1000 Iu)] Allergies Allergy/AdvReac Type Severity Reaction Status Date / Time No Known Allergies Allergy Verified 08/05/18 08:37 Surgical - Exam Vital Signs Temp Pulse Resp BP Pulse Ox 97.7 F 71 18 139/79 100 08/04/18 23:19 08/04/18 23:19 08/04/18 23:19 08/04/18 23:19 08/04/18 23:19 - General well developed, well nourished, no distress - Eyes PERRL - ENT normal pinna - Neck no masses - Respiratory normal expansion - Cardiovascular Rhythm: regular - Abdomen Abdomen: soft, non tender Results - Labs 08/05/18 08:47 08/05/18 08:47 Abnormal Lab Results - Last 24 Hours (Table) 08/05/18 08/05/18 08/05/18 Range/Units 00:03 08:47 08:47 Plt Count 137 L (150-450) k/uL Chloride 108 H 112 H (98-107) mmol/L Carbon Dioxide 19 L (22-30) mmol/L Glucose 121 H (74-99) mg/dL Diabetes panel 08/05/18 08/05/18 Range/Units 00:03 08:47 Sodium 138 140 (137-145) mmol/L Potassium 3.8 4.4 (3.5-5.1) mmol/L Chloride 108 H 112 H (98-107) mmol/L Carbon Dioxide 19 L 23 (22-30) mmol/L BUN 17 14 (9-20) mg/dL Creatinine 0.95 0.93 (0.66-1.25) mg/dL Glucose 121 H 91 (74-99) mg/dL Calcium 9.9 9.1 (8.4-10.2) mg/dL AST 23 19 (17-59) U/L ALT 28 25 (21-72) U/L Alkaline Phosphatase 67 48 (38-126) U/L Total Protein 7.5 6.3 (6.3-8.2) g/dL Albumin 4.6 3.7 (3.5-5.0) g/dL Calcium panel 08/05/18 08/05/18 Range/Units 00:03 08:47 Calcium 9.9 9.1 (8.4-10.2) mg/dL Albumin 4.6 3.7 (3.5-5.0) g/dL Pituitary panel 08/05/18 08/05/18 Range/Units 00:03 08:47 Sodium 138 140 (137-145) mmol/L Potassium 3.8 4.4 (3.5-5.1) mmol/L Chloride 108 H 112 H (98-107) mmol/L Carbon Dioxide 19 L 23 (22-30) mmol/L BUN 17 14 (9-20) mg/dL Creatinine 0.95 0.93 (0.66-1.25) mg/dL Glucose 121 H 91 (74-99) mg/dL Calcium 9.9 9.1 (8.4-10.2) mg/dL Adrenal panel 08/05/18 08/05/18 Range/Units 00:03 08:47 Sodium 138 140 (137-145) mmol/L Potassium 3.8 4.4 (3.5-5.1) mmol/L Chloride 108 H 112 H (98-107) mmol/L Carbon Dioxide 19 L 23 (22-30) mmol/L BUN 17 14 (9-20) mg/dL Creatinine 0.95 0.93 (0.66-1.25) mg/dL Glucose 121 H 91 (74-99) mg/dL Calcium 9.9 9.1 (8.4-10.2) mg/dL Total Bilirubin 0.5 0.3 (0.2-1.3) mg/dL AST 23 19 (17-59) U/L ALT 28 25 (21-72) U/L Alkaline Phosphatase 67 48 (38-126) U/L Total Protein 7.5 6.3 (6.3-8.2) g/dL Albumin 4.6 3.7 (3.5-5.0) g/dL Assessment and Plan Assessment: Resolving abdominal pain. Patient was discharged home later today.
--- NOTE | 2018-08-05 10:34 | P.DS ---
Providers Date of admission: 08/05/18 02:14 Expected date of discharge: 08/05/18 Attending physician: Jadon Renner Primary care physician: Fareed Jamil [facility] Course: This a 38-year-old male who was admitted to the hospital for observation of abdominal pain. Patient's pain resolved. He was started on clear liquid diet. He was discharged home Patient Condition at Discharge: Good Plan - Discharge Summary New Discharge Prescriptions: No Action Cholecalciferol [Vitamin D3 (25 Mcg = 1000 Iu)] 1,000 unit PO DAILY Discharge Medication List Cholecalciferol [Vitamin D3 (25 Mcg = 1000 Iu)] 1,000 unit PO DAILY 08/05/18 [History] Follow up Appointment(s)/Referral(s): Fareed Jamil MD [Primary Care Provider] - 1-2 days
== END 2018-08-05 12:27 | disposition home or self-care (01) ==
LOC: EC 23:14 → 4MS4W 08-05 02:14
PROVIDERS: ADMIT Surgery; ATTEND Surgery
DX: R10.84 Generalized abdominal pain (principal); R10.10 Upper abdominal pain, unspecified; R10.32 Left lower quadrant pain; R10.31 Right lower quadrant pain; R11.0 Nausea; Z79.899 Other long term (current) drug therapy; Z80.8 Family history of malignant neoplasm of other organs or systems; Z84.89 Family history of other specified conditions
CPT/HCPCS: 96375 ×2; 96376; 96361; 96374; 99285; 36415; 80053; 80048; 80076; 83690; 85025; 74177; G0378; J2270; J2405; J1885; Q9967

== ENCOUNTER → 2018-08-22 | Outpatient (CLI) | payer BC ==
--- NOTE | 2018-08-22 17:07 | MR ---
EXAMINATION TYPE: MR cervical spine wo/w con DATE OF EXAM: 08/22/2018 COMPARISON: None HISTORY: Cervicalgia / Paresthesia of skin TECHNIQUE: Multiplanar, multisequence images of the cervical spine were acquired utilizing 10 mL intravenous Josiah avist gadolinium contrast. Diffusion weighted imaging was performed. C2-C3: No evidence for degenerative disc disease. No disc bulge/herniation or protrusion. No Canal stenosis. Foramina are patent bilaterally. C3-C4: No evidence for degenerative disc disease. No disc bulge/herniation or protrusion. No Canal stenosis. Foramina are patent bilaterally. C4-C5: Artifact is extensive. Mild posterior broad-based disc bulge is present. Lower levels are obscured. There is extensive artifact due to patient's postop changes in the lower cervical spine. C5 through u pper thoracic spine is obscured. Craniovertebral junction relationships are within normal limits. No abnormal enhancement. IMPRESSION: Exam is nondiagnostic in the lower cervical spine. Mild degenerative disc changes noted at C4-5
== END | disposition home or self-care (01) ==
LOC: RADMRIMAIN 11:01
PROVIDERS: ATTEND Orthopaedic Surgery Orthopaedic Surgery of the Spine
DX: M47.812 Spondylosis without myelopathy or radiculopathy, cervical region (principal); E66.9 Obesity, unspecified; R20.2 Paresthesia of skin; Z98.1 Arthrodesis status
CPT/HCPCS: 72156; A9585

== ENCOUNTER 2018-09-26 07:53 | Day surgery (SDC) | payer BC ==
[~2018-09-26 07:53] MED LIST: PREMYELOGRAM MEDICATION REVIEW 1 EACH MISC PO PRN
[2018-09-26] MEDS ORDERED: DIAZEPAM 5 MG TAB PO STA (08:27)
[2018-09-26 08:46] VITALS: TEMP 97.6
[2018-09-26 10:00] VITALS: PULSE 80
[2018-09-26] MEDS ORDERED: HYDROcodone/APAP 5-325MG 1 EACH TAB PO PRN (10:08)
--- NOTE | 2018-09-26 10:46 | FL ---
Lumbar puncture and Myelogram. INDICATION: Cervical spine pain FINDINGS: Fluoroscopy time: 1 minute 29 seconds. Images obtained: 5. The procedure was explained to the patient. Risks complications and benefits were discussed. Alternat diane were discussed. All questions were answered. Informed consent was obtained. A timeout was performed. The L4-5 level was chosen for access. Maximum barrier sterile technique was utilized. The skin was cl eansed with Betadine and the patient sterilely prepped and draped in the usual manner. The skin and d eeper tissue was anesthetized with 1% Lidocaine. Utilizing a 22-gauge spinal needle the spinal canal was accessed. Good CSF return was evident. Isovue-M 300 was utilized, 11 milliliters was administere d under fluoroscopic observation. The stylette was replaced and the needle withdrawn. Fluoroscopic spot images were obtained. The patient tolerated the procedure well. Discharge instructions were discussed with the patient. Th e patient was transferred to CT for additional evaluation. Findings: Limited fluoroscopic views of the cervical spinal canal were obtained. Disc spacers presen t lower cervical spine. No obvious fluoroscopic abnormality evident. IMPRESSIONS: 1. Successful Lumbar Puncture. 2. Findings are pending CT examination post myelogram.
--- NOTE | 2018-09-26 11:08 | CT ---
EXAMINATION TYPE: CT cervical spine w con DATE OF EXAM: 09/26/2018 COMPARISON: Myelogram HISTORY: cervicalgia CT DLP: 761.9 mGycm CONTRAST: 11 ml of isovue 300 M post myelogram scan CT of the cervical spine is performed in the axial plane at 2 mm thick sections. Reconstructed image s in the coronal, and sagittal plane are reviewed on the computer. No acute fractures are evident. Vertebral body alignment is normal. There is a C6-7 disc spacer present. Disc heights are otherwise preserved. Vertebral body heights are preserved. C3-4: Small central spur is present at the superior endplate C4 with mild anterior thecal sac johanna sean. No spinal canal stenosis or cord contact is evident. C4-5: Mild disc bulge may be present C4-5 with anterior thecal sac compression. No cord contact is pr esent. No spinal canal stenosis or neural foraminal stenosis is present. There is a central spur with out cord contact superior endplate of C5. C5-6: Broad-based disc bulge has moderate anterior thecal sac compression. This comes in close approx imation with the spinal cord. Cord contact or deformity is not identified. No AP spinal canal stenosi s present. Neural foramen are patent. C6-7: Mild left paracentral endplate changes have mild anterior thecal sac compression without cord c ontact. No spinal canal stenosis is present. Neural foramen are patent. Within the [id number] at T3-4 there is a moderate size central disc herniation with moderate anter ior thecal sac compression. Some cord contact appears to be present with mild cord deformity. No AP s cash canal stenosis is present. IMPRESSIONS: 1. Mild disc bulging C4-5 without cord contact. 2. Disc bulge with moderate anterior thecal sac compression at C5-6. No cord contact is evident altho ugh this is in close approximation with the spinal cord. 3. Endplate spurring has anterior thecal sac compression C3-4 and C6-7 without cord contact or spinal canal stenosis. 4. Moderate size central disc herniation noted at T3-4 may have cord contact and mild cord deformity. Recommend MRI thoracic spine for additional evaluation.
[2018-09-26 15:10] VITALS: RESP 20
[2018-09-26 15:13] VITALS: BP 134/77
== END 2018-09-26 14:04 | disposition home or self-care (01) ==
LOC: RADPROMAIN 07:53
PROVIDERS: ATTEND Orthopaedic Surgery Orthopaedic Surgery of the Spine
DX: M54.2 Cervicalgia (principal); Z98.1 Arthrodesis status; M54.12 Radiculopathy, cervical region; E66.3 Overweight; Z68.27 Body mass index [BMI] 27.0-27.9, adult
CPT/HCPCS: 62302; 72126; Q9967

== ENCOUNTER 2018-09-28 10:14 | Emergency (ER) | payer BC ==
[2018-09-28 10:27] VITALS: RESP 18
[2018-09-28] MEDS ORDERED: METOCLOPRAMIDE 5 MG/ML 2 ML VIAL IVP STA (11:33)
[2018-09-28] MEDS ORDERED: MORPHINE SULFATE 4 MG/ML SYRINGE IV STA (11:33)
[2018-09-28] MEDS ORDERED: SODIUM CHLORIDE 0.9% 1,000 ML IV STA (11:33)
[2018-09-28] MEDS ORDERED: diphenhydrAMINE 50 MG/ML 1 ML VIAL IVP STA (11:33)
--- NOTE | 2018-09-28 12:22 | CT ---
EXAMINATION TYPE: CT brain wo con DATE OF EXAM: 09/28/2018 COMPARISON: Previous study dated 04/16/2012. HISTORY: Severe HOOVER, pt had a cervical myelogram on 09/26/18 CT DLP: 1079.4 mGycm Automated exposure control for dose reduction was used. FINDINGS: Central structures are midline. There is no evidence of hydrocephalus. No acute focal lesion, mass ef fect or midline shift is seen. I do not see evidence of intracranial blood. There is mucoperiosteal thickening involving both maxillary sinuses. There is an air-fluid level pres ent in the left maxillary sinus. The remainder of the paranasal sinuses and mastoids are clear. The b ghada calvarium is intact. IMPRESSION: 1. NO ACUTE INTRACRANIAL ABNORMALITY. 2. 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
--- NOTE | 2018-09-28 13:08 | ED ---
General Adult HPI - General Chief complaint: Headache Stated complaint: Headache, Neck Pain Time Seen by Provider: 09/28/18 10:37 Source: patient, RN notes reviewed, old records reviewed Mode of arrival: ambulatory Limitations: no limitations - History of Present Illness Initial comments: 38-year-old male patient with past medical history of migraine headache disorder presents to ED for headache. Patient worse the headache began approximate 1.5 hours prior to presenting to ER. Patient describes it as a left temporal headache. Patient denies thunderclap onset, denies worst headache of life. Patient does her stated this headache is different than his normal headaches. Patient denies any change in vision or loss of consciousness. Patient did have a LP 2 days ago for dye injection for a CT/ denies any other complaints at this time. Denies any fevers or chills, nausea vomiting or diarrhea. Systemic: Pt denies fatigue, fever/chills, rash. Pt denies weakness, night sweats, weight loss. Neuro: Pt denies headache, visual disturbances, syncope or pre-syncope. HEENT: Pt denies ocular discharge or irritation, otalgia, rhinorrhea, pharyngitis or notable lymphadenopathy. Cardiopulmonary: Pt denies chest pain, SOB, heart palpitations, dyspnea on exertion. Abdominal/GI: Pt denies abdominal pain, n/v/d. : Pt denies dysuria, burning w/ urination, frequency/urgency. Denies new onset urinary or bowel incontinence. MSK: Pt denies myalgia, loss of strength or function in extremities. Neuro: Pt denies new onset weakness, paresthesias. - Related Data Home Medications Medication Instructions Recorded Confirmed Acetaminophen [Tylenol] 500 mg PO Q4-6H PRN 09/28/18 09/28/18 Allergies Allergy/AdvReac Type Severity Reaction Status Date / Time seasonal allergies Allergy Unknown Nausea Uncoded 09/28/18 10:47 Review of Systems ROS Statement: Those systems with pertinent positive or pertinent negative responses have been documented in the HPI. ROS Other: All systems not noted in ROS Statement are negative. Past Medical History Past Medical History: Hyperlipidemia, Musculoskeletal Disorder Additional Past Medical History / Comment(s): MIGRAINE HEADACHE, cervical spine ruptured disc, back History of Any Multi-Drug Resistant Organisms: None Reported Past Surgical History: Back Surgery Additional Past Surgical History / Comment(s): neck surg cervical vertebrae, steel bearing at C6, steroid injections in lumbar spine many years Past Anesthesia/Blood Transfusion Reactions: No Reported Reaction Past Psychological History: No Psychological Hx Reported Smoking Status: Never smoker Past Alcohol Use History: Occasional Past Drug Use History: None Reported - Past Family History Father Family Medical History: Cancer Additional Family Medical History / Comment(s): Skin cancer malignant melanoma removed Mother Family Medical History: No Reported History Additional Family Medical History / Comment(s): Spine issues General Exam - General Exam Comments Initial Comments: Constitutional: NAD, AOX3, Pt has pleasant affect. HEENT: NC/AT, trachea midline, neck supple, no lymphadenopathy. Posterior pharynx non erythematous, without exudates. External ears appear normal, without discharge. Mucous membranes moist. Eyes PERRLA, EOM intact. There is no scleral icterus. No pallor noted. Cardiopulmonary: RRR, no murmurs, rubs or gallops, no JVD noted. Lungs CTAB in anterior and posterior arroyo. No peripheral edema. Abdominal exam: Abdomen soft and non-distended. Abdomen non-tender to palpation in all 4 quadrants. Bowel sounds active in LLQ. No hepatosplenomegaly. No ecchymosis Neuro: CN II-XII intact. No nuchal rigidity. No raccon eyes, no foss sign, no hemotympanum. No cervical spinal tenderness. NIH 0. Kernigs and brudzinskis negative. MSK: No posterior calf tenderness bilaterally, homans sign negative bilaterally. Posterior tibialis and radial pulse +2 bilaterally. Sensation intact in upper and lower extremities. Full active ROM in upper and lower extremities, 5/5 stregnth. Limitations: no limitations Course Vital Signs 09/28/18 10:24 Temperature 97.5 F L Pulse Rate 91 Respiratory 18 Rate Blood Pressure 107/72 O2 Sat by Pulse 99 Oximetry Medical Decision Making - Medical Decision Making 38-year-old male patient with past medical history of migraine headache disorder presents to ED for headache. Patient worse the headache began approximate 1.5 hours prior to presenting to ER. Patient describes it as a left temporal headache. Patient denies thunderclap onset, denies worst headache of life. Patient does her stated this headache is different than his normal headaches. Patient denies any change in vision or loss of consciousness. Patient did have a LP 2 days ago for dye injection for a CT/ denies any other complaints at this time. Denies any fevers or chills, nausea vomiting or diarrhea. Patient vital signs stable, afebrile. Physical exam did not display acute pathology. Neurolo gic exam wnl x2. Brain CT displayed no acute intracranial abnormality, acute on chronic maxillary sinus mucosal disease. These findings related to patient. Patient headache resolved after analgesic. Patient discharged, follow-up with primary care provider, return to ER if patient condition worsens in any way. Case discussed with Dr. Ruiz. Disposition Clinical Impression: Acute headache Disposition: HOME SELF-CARE Condition: Stable Instructions (If sedation given, give patient instructions): Acute Headache (ED) Additional Instructions: Patient to adhere to previously discussed treatment plan and will take medication(s) as directed. Patient to follow up with PCP in 1-2 days. Patient to return to ED if symptoms do not improve. Return to ER if condition worsens in any way. Is patient prescribed a controlled substance at d/c from ED?: No Referrals: Fareed Jamil MD [Primary Care Provider] - 1-2 days
[2018-09-28 13:35] VITALS: BP 112/79; PULSE 66; TEMP 97.9
== END 2018-09-28 13:20 | disposition home or self-care (01) ==
LOC: EC 10:14
DX: R51 Headache (principal); M54.2 Cervicalgia; Z87.39 Personal history of other diseases of the musculoskeletal system and connective tissue; Z86.69 Personal history of other diseases of the nervous system and sense organs; Z98.890 Other specified postprocedural states; Z91.09 Other allergy status, other than to drugs and biological substances
CPT/HCPCS: 70450; 99284; 96374; 96375 ×2; 96361; J2270; J1200; J2765

== ENCOUNTER 2018-09-28 17:34 | Emergency (ER) | payer BC ==
[2018-09-28 17:48] VITALS: RESP 18
[2018-09-28] MEDS ORDERED: MORPHINE SULFATE 4 MG/ML SYRINGE IVP STA (18:50)
[2018-09-28] MEDS ORDERED: SODIUM CHLORIDE 0.9% 1,000 ML IV STA (18:50)
[2018-09-28] MEDS ORDERED: CAFFEINE-SODIUM BENZOATE 500 MG in SODIUM CHLORIDE 0.9% 1,000 ML IVPB ONE (19:27)
[2018-09-28] MEDS ORDERED: KETOROLAC 30 MG/ML 1 ML VIAL IVP STA (20:28)
[2018-09-28] MEDS ORDERED: diphenhydrAMINE 50 MG/ML 1 ML VIAL IVP STA (20:28)
[2018-09-28] MEDS ORDERED: METOCLOPRAMIDE 5 MG/ML 2 ML VIAL IVP STA (20:28)
--- NOTE | 2018-09-28 20:31 | ED ---
General Adult HPI - General Source: patient Mode of arrival: ambulatory Limitations: no limitations <Darien Khan - Last Filed: 09/28/18 20:23> <Abhi Vickers - Last Filed: 09/28/18 22:58> - General Chief complaint: Headache Stated complaint: Spinal headcahe Time Seen by Provider: 09/28/18 17:57 - History of Present Illness Initial comments: Patient is a 38-year-old male presenting to emergency Department with a headache. Patient had a lumbar puncture performed 3 days ago for addition of IV contrast for CT imaging. Patient was discharged without complications. Patient reports she developed a generalized headache on his left side since yesterday that has not resolved. Patient reports the pain is exacerbated when sitting up or standing and alleviated when laying supine. Patient reports coming in this morning when he was given analgesics with improvement in pain. Patient was discharged and advised to follow-up. Patient reports few hours after discharge he developed the same headache along with neck stiffness. Patient denies blurry vision, chest pain, chest tightness, nausea or vomiting. Patient denies one sided and paresthesias or muscle weakness. Patient denies a thunderclap onset. (Darien Khan) - Related Data Home Medications Medication Instructions Recorded Confirmed Acetaminophen [Tylenol] 500 mg PO Q4-6H PRN 09/28/18 09/28/18 Allergies Allergy/AdvReac Type Severity Reaction Status Date / Time seasonal allergies AdvReac Unknown Nausea Uncoded 09/28/18 17:54 Review of Systems ROS Other: All systems not noted in ROS Statement are negative. <Darien Khan - Last Filed: 09/28/18 20:23> ROS Other: All systems not noted in ROS Statement are negative. <Abhi Vickers - Last Filed: 09/28/18 22:58> ROS Statement: Those systems with pertinent positive or pertinent negative responses have been documented in the HPI. Past Medical History Past Medical History: Hyperlipidemia, Musculoskeletal Disorder Additional Past Medical History / Comment(s): MIGRAINE HEADACHE, cervical spine ruptured disc, back History of Any Multi-Drug Resistant Organisms: None Reported Past Surgical History: Back Surgery Additional Past Surgical History / Comment(s): neck surg cervical vertebrae, steel bearing at C6, steroid injections in lumbar spine many years Past Anesthesia/Blood Transfusion Reactions: No Reported Reaction Past Psychological History: No Psychological Hx Reported Smoking Status: Never smoker Past Alcohol Use History: Occasional Past Drug Use History: None Reported - Past Family History Father Family Medical History: Cancer Additional Family Medical History / Comment(s): Skin cancer malignant melanoma removed Mother Family Medical History: No Reported History Additional Family Medical History / Comment(s): Spine issues <Darien Khan - Last Filed: 09/28/18 20:23> General Exam Limitations: no limitations <Darien Khan - Last Filed: 09/28/18 20:23> - General Exam Comments Initial Comments: General: Well-developed well-nourished distress HEENT: Normocephalic/atraumatic, PERLL, pharynx erythema, swallowing well, EAC no erythema, no exudates, TM clear, no cervical lymph nodes Neck: Supple, nontender, trachea midline Chest/Lungs: Normal respirations, no signs of respiratory distress clear to auscultation bilaterally no wheezes, rales, rhonchi Cardiac: Regular rate and rhythm, normal S1-S2, no murmurs rubs or gallops Abdomen/GI: Soft nontender, bowel sounds equal or quadrant x4, no guarding, no rebound no CVA tenderness Musculoskeletal: Nontender, full range of motion, no edema, strength equal bilaterally Skin: Warmth, no rashes or lesions, no cyanosis or diaphoresis Neurologic: AAO x 3, CN 2-12 intact, Psychiatric: Mood and affect normal, judgment normal (Darien Khan) Course Vital Signs 09/28/18 09/28/18 09/28/18 17:45 19:05 19:39 Temperature 97.6 F Pulse Rate 103 H 75 72 Respiratory 18 18 18 Rate Blood Pressure 127/77 116/80 119/82 O2 Sat by Pulse 98 96 98 Oximetry 09/28/18 21:46 Temperature Pulse Rate 57 L Respiratory 18 Rate Blood Pressure 125/80 O2 Sat by Pulse 98 Oximetry Medical Decision Making <Darien Khan - Last Filed: 09/28/18 20:23> - Medical Decision Making Patient is a 2-year-old male presenting to emergency Department with a headache. Anesthesiology was consulted regarding the patient. The advised patient to be given 2 L of fluids, caffeine. Patient was also given morphine after initial evaluation. On reevaluation patient reports the pain has decreased to about a 3 and supine position. The anesthesiologist reports if the suggested treatment does not provide relief a blood patch will be performed. At this point in time, care will be signed off to Dr. Vickers. (Darien Khan) Disposition Is patient prescribed a controlled substance at d/c from ED?: No Time of Disposition: 20:31 <Darien Khan - Last Filed: 09/28/18 20:23> <Abhi Vickers - Last Filed: 09/28/18 22:58> Clinical Impression: Headache Disposition: HOME SELF-CARE Condition: Stable Instructions (If sedation given, give patient instructions): Acute Headache (ED) Additional Instructions: Please follow with primary care. Please return to emergency department if symptoms worsen. Referrals: Fareed Jamil MD [Primary Care Provider] - 1-2 days
[2018-09-28 23:08] VITALS: BP 123/76; PULSE 60; TEMP 98
== END 2018-09-28 23:12 | disposition home or self-care (01) ==
LOC: EC 17:34
DX: G97.1 Other reaction to spinal and lumbar puncture (principal); M43.6 Torticollis; Z86.69 Personal history of other diseases of the nervous system and sense organs; Z87.39 Personal history of other diseases of the musculoskeletal system and connective tissue; Z98.890 Other specified postprocedural states; Z91.09 Other allergy status, other than to drugs and biological substances
CPT/HCPCS: 99283; 96365; 96375 ×4; 96361; J2270; J1200; J2765; J1885

== ENCOUNTER 2018-10-01 09:29 | Day surgery (SDC) | payer BC ==
[2018-10-01 10:43] VITALS: TEMP 97.2
[2018-10-01] MEDS ORDERED: LACTATED RINGERS 1,000 ML IV ONE (10:43)
[2018-10-01] MEDS ORDERED: IV FLUID CONTINUATION 500 ML IV ONE (11:29)
[2018-10-01] MEDS ORDERED: LACTATED RINGERS 1,000 ML IV SCH (11:43)
--- NOTE | 2018-10-01 12:57 | P.PCN ---
Date of Procedure: 10/01/18 Procedure(s) Performed: Procedure= lumbar epidural blood patch. Preoperative diagnosis= postdural puncture headache. Postoperative diagnoses= post dural puncture headache. Indication for the procedure= patient developed headache after CT myelogram which has persisted in spite of conservative treatment, there is no focal neurological deficit, no fever, headache worse with sitting and standing position, and improved with lying supine, consistent with post dural puncture headache for this reason patient is a good candidate for epidural blood patch. anesthesia= IV sedation with Versed and local infiltration with lidocaine 1% 3 mL. Complications= none. Description of the procedure= patient identified risks and benefits of the procedure explained to the patient and patient agreed with proceeding, vital signs monitored during the procedure and IV sedation given to decrease anxiety, Back lumbar area prepped with chlorhexidine 2 times, then drape applied the local infiltration of the skin and subcutaneous tissue with lidocaine 1% 3 mL at L4-L5 interlaminar space then 20-gauge Tuohy needle advanced slowly, There was positive loss of resistance to normal saline, no heme no paresthesia no cerebrospinal fluid. Then 25 ML of the blood was taken from the patient under strict sterile technique, after the antecubital area prepped with a chlorhexidine 3 times using 18-gauge Angiocath, and under sterile technique 25 ML of the blood taken from the patient was injected in the epidural space after negative aspiration for heme or CSF and there was no paresthesia then the needle removed intact the skin cleaned. Bandage was applied. Patient reported almost immediate relief of headache. He was made to lay flat in the recovery room for 2 hours. Then he was discharged home in stable condition after discharge criteria met.
[2018-10-01 13:37] VITALS: BP 106/75; PULSE 63; RESP 18
== END 2018-10-01 14:00 | disposition home or self-care (01) ==
LOC: ORPAIN 09:29
PROVIDERS: ATTEND Anesthesiology
DX: G97.1 Other reaction to spinal and lumbar puncture (principal); Z79.1 Long term (current) use of non-steroidal anti-inflammatories (NSAID); Z79.891 Long term (current) use of opiate analgesic
CPT/HCPCS: 62273; J2250; 99152

== ENCOUNTER → 2019-04-30 | Outpatient (CLI) | payer BC ==
--- NOTE | 2019-04-30 17:57 | PN ---
PROGRESS NOTE DATE OF SERVICE: 04/30/2019. 38-year-old gentleman has been followed in the sleep center for possible obstructive sleep apnea-hypopnea syndrome. Last time I saw patient in May of 2018. At that time, recommended him to do the sleep study. For different reasons, the patient had a home sleep apnea test which was done in another institution and results of this test borderline apnea-hypopnea index on that test from 12/12/2018, apnea-hypopnea index 4.8 with lowest oxygen level 90%. Patient continued to have wake up from sleep, especially if he is staying on the back position, sometimes feel sleepiness during the day and tiredness. [place] Sleepiness Scale today is 6. MEDICATIONS: None. PHYSICAL EXAM: Patient in no distress. Blood pressure 128/77, HR 71, RR 15, height 6 foot 3.5 inches, weight 231, body mass index 28.4, afebrile. HEENT: Oropharynx moderately low position of soft palate, Mallampati 3. NECK: Supple, no JVD. Thyroid is not palpable. LUNGS: Clear to percussion and to auscultation. Good air exchange. No wheezing or rhonchi. HEART: S1, S2 regular. Few extrasystoles. ABDOMEN: Soft and nontender. Bowel sounds are present. No organomegaly appreciated. EXTREMITIES: No clubbing or cyanosis. M[employer] SHEET [employer]ER: Awake, alert, and oriented X3. Cranial nerves 2 to 7 intact. There is no fasciculation or atrophy. noted. No focal deficits observed. IMPRESSION: 1. Snoring, multiple awakenings from sleep, borderline results of home sleep apnea test which was done in another institution. 2. Possible extrasystoles by auscultation of the heart. 3. Status post neck surgery for disc rupture. 4. Episodes of headaches and migraines. PLAN: 1. Home sleep apnea test for evaluation of patient's breathing during the sleep. 2. Sleep hygiene with regular time in bed for 7-1/2 to 8 hours. 3. No driving if feeling sleepiness. 4. Following plan after reviewing the results of home sleep apnea test. Thank you very much for allowing me to participate in management of your patient. Sincerely, Niraj Ruiz MD, PhD, FAASM Diplomat of [employer] [facility] [facility] MMODL / IJN: [id number] /
== END | disposition home or self-care (01) ==
LOC: SLEEP 15:54
PROVIDERS: ATTEND Internal Medicine
DX: R06.83 Snoring (principal); G43.909 Migraine, unspecified, not intractable, without status migrainosus; Z98.890 Other specified postprocedural states

== ENCOUNTER 2019-11-07 02:22 | Emergency (ER) | payer BC ==
[2019-11-07] MEDS ORDERED: KETOROLAC 15 MG/ML 1 ML VIAL IVP STA (02:43)
[2019-11-07] MEDS ORDERED: MORPHINE SULFATE 4 MG/ML SYRINGE IV STA (02:43)
[2019-11-07] MEDS ORDERED: ONDANSETRON 4 MG/2 ML VIAL IVP STA (02:43)
[2019-11-07] MEDS ORDERED: SODIUM CHLORIDE 0.9% 1,000 ML IV STA (02:43)
[2019-11-07] MEDS ORDERED: MAG HYDROX/AL HYDROX/SIMETH 30 ML, HYOSCYAMINE ELIXIR 10 ML PO STA ×2 (03:01)
[2019-11-07] MEDS ORDERED: FAMOTIDINE 20 MG/2 ML VIAL IV STA (03:01)
--- NOTE | 2019-11-07 03:01 | ED ---
Abdominal Pain HPI - General Chief Complaint: Abdominal Pain Stated Complaint: Abd pain Time Seen by Provider: 11/07/19 02:23 Source: patient, family, RN notes reviewed, old records reviewed Mode of arrival: ambulatory Limitations: no limitations - History of Present Illness Initial Comments: This is a 39-year-old male going through nonspecific abdominal pain. Patient has persistent abdominal pain and nausea here in the ER. No fevers, patient scheduled for further gallbladder evaluation with HIDA scan L patient's burning in the middle distress and nausea. Patient states he tried at home medications does not improve symptoms. No chest pain no shortness of breath MD Complaint: abdominal pain (Reflux type pain) -: hour(s) Location: epigastric Radiation: epigastric Migration to: epigastric, other Severity scale (1-10): 8 Quality: stabbing, burning Consistency: constant Improves With: nothing Worsens With: nothing Associated Symptoms: nausea - Related Data Allergies Allergy/AdvReac Type Severity Reaction Status Date / Time seasonal allergies AdvReac Unknown Nausea Uncoded 11/07/19 02:31 Review of Systems ROS Statement: Those systems with pertinent positive or pertinent negative responses have been documented in the HPI. ROS Other: All systems not noted in ROS Statement are negative. Past Medical History Past Medical History: Hyperlipidemia, Musculoskeletal Disorder Additional Past Medical History / Comment(s): MIGRAINE HEADACHE, cervical spine ruptured disc, back, gallbladder sludge History of Any Multi-Drug Resistant Organisms: None Reported Past Surgical History: Back Surgery Additional Past Surgical History / Comment(s): neck surg cervical vertebrae, steel bearing at C6, steroid injections in lumbar spine many years Past Anesthesia/Blood Transfusion Reactions: No Reported Reaction Past Psychological History: Panic Disorder Smoking Status: Never smoker Past Alcohol Use History: Occasional Past Drug Use History: None Reported - Past Family History Father Family Medical History: Cancer Additional Family Medical History / Comment(s): Father is alive at age 70 with history of skin cancer malignant melanoma. No history of coronary artery disease. Mother Family Medical History: No Reported History Additional Family Medical History / Comment(s): A mother is alive at age 70 with back and cervical problems similar to the patient's. No coronary artery disease. Patient has one half-brother. Patient does not have any sisters. Patient does not have any children. General Exam Limitations: no limitations General appearance: alert, in no apparent distress Head exam: Present: atraumatic, normocephalic, normal inspection Eye exam: Present: normal appearance, PERRL, EOMI. Absent: scleral icterus, conjunctival injection, periorbital swelling ENT exam: Present: normal exam, mucous membranes moist Neck exam: Present: normal inspection. Absent: tenderness, meningismus, lymphadenopathy Respiratory exam: Present: normal lung sounds bilaterally. Absent: respiratory distress, wheezes, rales, rhonchi, stridor Cardiovascular Exam: Present: regular rate, normal rhythm, normal heart sounds. Absent: systolic murmur, diastolic murmur, rubs, gallop, clicks GI/Abdominal exam: Present: soft, normal bowel sounds. Absent: distended, tenderness, guarding, rebound, rigid Extremities exam: Present: normal inspection, full ROM, normal capillary refill. Absent: tenderness, pedal edema, joint swelling, calf tenderness Back exam: Present: normal inspection Neurological exam: Present: alert, oriented X3, CN II-XII intact Psychiatric exam: Present: normal affect, normal mood Skin exam: Present: warm, dry, intact, normal color. Absent: rash Course Vital Signs 11/07/19 02:27 Temperature 97.9 F Pulse Rate 63 Respiratory 20 Rate Blood Pressure 117/72 O2 Sat by Pulse 99 Oximetry - Reevaluation(s) Reevaluation #1: 11/07/19 04:18 Medical records reviewed Reevaluation #2: 11/07/19 04:18 Patient informed results and questions are answered Reevaluation #3: 11/07/19 04:18 Symptoms improved Medical Decision Making - Medical Decision Making 39 male DF with reflux type symptoms gastritis, given appropriate nausea medication and anti-antacids here in the ER patient can be discharged home - Lab Data Result diagrams: 11/07/19 03:01 11/07/19 03:01 Lab Results 11/07/19 11/07/19 11/07/19 Range/Units 03:01 03:01 03:01 WBC 6.0 (3.8-10.6) k/uL RBC 5.23 (4.30-5.90) m/uL Hgb 15.2 (13.0-17.5) gm/dL Hct 45.8 (39.0-53.0) % MCV 87.6 (80.0-100.0) fL MCH 29.2 (25.0-35.0) pg MCHC 33.3 (31.0-37.0) g/dL RDW 12.6 (11.5-15.5) % Plt Count 132 L (150-450) k/uL Neutrophils % 56 % Lymphocytes % 33 % Monocytes % 7 % Eosinophils % 1 % Basophils % 1 % Neutrophils # 3.4 (1.3-7.7) k/uL Lymphocytes # 2.0 (1.0-4.8) k/uL Monocytes # 0.4 (0-1.0) k/uL Eosinophils # 0.1 (0-0.7) k/uL Basophils # 0.0 (0-0.2) k/uL Sodium 137 (137-145) mmol/L Potassium 4.3 (3.5-5.1) mmol/L Chloride 105 (98-107) mmol/L Carbon Dioxide 23 (22-30) mmol/L Anion Gap 9 mmol/L BUN 14 (9-20) mg/dL Creatinine 0.87 (0.66-1.25) mg/dL Est GFR (CKD-EPI)AfAm >90 (>60 ml/min/1.73 sqM) Est GFR (CKD-EPI)NonAf >90 (>60 ml/min/1.73 sqM) Glucose 98 (74-99) mg/dL Plasma Lactic Acid Greg 1.2 (0.7-2.0) mmol/L Calcium 9.7 (8.4-10.2) mg/dL Total Bilirubin 0.7 (0.2-1.3) mg/dL AST 24 (17-59) U/L ALT 23 (4-49) U/L Alkaline Phosphatase 60 (38-126) U/L Total Protein 7.3 (6.3-8.2) g/dL Albumin 4.5 (3.5-5.0) g/dL Amylase 54 (30-110) U/L Lipase 32 (23-300) U/L Disposition Clinical Impression: Abdominal pain, Gastritis Disposition: HOME SELF-CARE Condition: Good Instructions (If sedation given, give patient instructions): Gastritis (ED), Abdominal Pain (ED) Is patient prescribed a controlled substance at d/c from ED?: No Referrals: Fareed Jamil MD [Primary Care Provider] - 1-2 days
[2019-11-07 03:18] LABS: Basophils % (A) 1 %; Eosinophils # (A) 0.1 k/uL (0-0.7); Eosinophils % (A) 1 %; HCT 45.8 % (39.0-53.0); HGB 15.2 gm/dL (13.0-17.5); Lymphocytes % (A) 33 %; MCH 29.2 pg (25.0-35.0); MCHC 33.3 g/dL (31.0-37.0); MCV 87.6 fL (80.0-100.0); Mean Platelet Volume 9.6; Monocytes # (A) 0.4 k/uL (0-1.0); Monocytes % (A) 7 %; Neutrophils # (A) 3.4 k/uL (1.3-7.7); Neutrophils % (A) 56 %; Platelet Count 132 k/uL (150-450); RBC 5.23 m/uL (4.30-5.90); RDW 12.6 % (11.5-15.5)
[2019-11-07 03:27] LABS: ALT 23 U/L (4-49); AST 24 U/L (17-59); African American GFR (CKD) >90 (>60 ml/min/1.73 sqM); Albumin 4.5 g/dL (3.5-5.0); Alkaline Phosphatase 60 U/L (38-126); Amylase 54 U/L (30-110); Anion Gap 9 mmol/L; Blood Urea Nitrogen 14 mg/dL (9-20); Calcium 9.7 mg/dL (8.4-10.2); Carbon Dioxide 23 mmol/L (22-30); Chloride 105 mmol/L (98-107); Glucose 98 mg/dL (74-99); Non-African American GFR(CKD) >90 (>60 ml/min/1.73 sqM); Potassium 4.3 mmol/L (3.5-5.1); Sodium 137 mmol/L (137-145); Total Bilirubin 0.7 mg/dL (0.2-1.3); Total Protein 7.3 g/dL (6.3-8.2)
[2019-11-07] MEDS ORDERED: METOCLOPRAMIDE 5 MG/ML 2 ML VIAL IVP STA (03:55)
[2019-11-07 05:01] VITALS: BP 108/64; PULSE 58; RESP 18; TEMP 97.7
== END 2019-11-07 05:02 | disposition home or self-care (01) ==
LOC: EC 02:22
DX: K29.70 Gastritis, unspecified, without bleeding (principal); Z91.048 Other nonmedicinal substance allergy status
CPT/HCPCS: 36415; 80053; 82150; 83605; 83690; 85025; 99284; 96374; 96375 ×3; 96361 ×2; J2270; J2405; J1885

== ENCOUNTER 2021-09-01 03:26 | Emergency (ER) | payer BC ==
[2021-09-01 03:35] VITALS: RESP 18; TEMP 97.5
[2021-09-01] MEDS ORDERED: SODIUM CHLORIDE 0.9% 1,000 ML IV STA (05:03)
[2021-09-01] MEDS ORDERED: PROCHLORPERAZINE INJ 10 MG/2 ML VIAL IVP STA (05:03)
[2021-09-01] MEDS ORDERED: KETOROLAC 15 MG/ML 1 ML VIAL IVP STA (05:03)
[2021-09-01] MEDS ORDERED: diphenhydrAMINE 50 MG/ML 1 ML VIAL IVP STA (05:03)
--- NOTE | 2021-09-01 05:03 | ED ---
Headache HPI - General Chief Complaint: Headache Stated Complaint: Headache Time Seen by Provider: 09/01/21 04:02 Source: RN notes reviewed, old records reviewed Mode of arrival: ambulatory Limitations: no limitations - History of Present Illness Initial Comments: This is a 41-year-old male to the emergency room today for evaluation. Patient has a for evaluation regards to make. Patient states headache with history of headache. History of migraine headaches presents feels like his normal migraine. He has come the ER before Sunday. Patient has mild nausea no active vomiting but unable to take down his medications at home. No trauma no fevers no other complaints MD Complaint: headache, "migraine" -: days(s) Onset Description: gradual Location: right, left, frontal, temporal Severity: moderate Severity scale (1-10): 6 Quality: throbbing, pulsatile, sharp, similar to previous headaches Consistency: constant Improves With: nothing Worsens With: none Associated Symptoms: nausea, vomiting, photophobia Treatments Prior to Arrival: none - Related Data Allergies Allergy/AdvReac Type Severity Reaction Status Date / Time seasonal allergies AdvReac Unknown Nausea Uncoded 02/13/20 18:14 Review of Systems ROS Statement: Those systems with pertinent positive or pertinent negative responses have been documented in the HPI. ROS Other: All systems not noted in ROS Statement are negative. Past Medical History Past Medical History: Hyperlipidemia, Musculoskeletal Disorder Additional Past Medical History / Comment(s): MIGRAINE HEADACHE, cervical spine ruptured disc, back, gallbladder sludge History of Any Multi-Drug Resistant Organisms: None Reported Past Surgical History: Back Surgery Additional Past Surgical History / Comment(s): neck surg cervical vertebrae, steel bearing at C6, steroid injections in lumbar spine many years Past Anesthesia/Blood Transfusion Reactions: No Reported Reaction Past Psychological History: Panic Disorder Smoking Status: Never smoker Past Alcohol Use History: Occasional Past Drug Use History: Marijuana - Past Family History Father Family Medical History: Cancer Additional Family Medical History / Comment(s): Father is alive at age 70 with history of skin cancer malignant melanoma. No history of coronary artery disease. Mother Family Medical History: No Reported History Additional Family Medical History / Comment(s): A mother is alive at age 70 with back and cervical problems similar to the patient's. No coronary artery disease. Patient has one half-brother. Patient does not have any sisters. Patient does not have any children. General Exam Limitations: no limitations General appearance: alert, in no apparent distress Head exam: Present: atraumatic, normocephalic, normal inspection Eye exam: Present: normal appearance, PERRL, EOMI. Absent: scleral icterus, conjunctival injection, periorbital swelling ENT exam: Present: normal exam, mucous membranes moist Neck exam: Present: normal inspection. Absent: tenderness, meningismus, lymphadenopathy Respiratory exam: Present: normal lung sounds bilaterally. Absent: respiratory distress, wheezes, rales, rhonchi, stridor Cardiovascular Exam: Present: regular rate, normal rhythm, normal heart sounds. Absent: systolic murmur, diastolic murmur, rubs, gallop, clicks GI/Abdominal exam: Present: soft, normal bowel sounds. Absent: distended, tenderness, guarding, rebound, rigid Extremities exam: Present: normal inspection, full ROM, normal capillary refill. Absent: tenderness, pedal edema, joint swelling, calf tenderness Back exam: Present: normal inspection Neurological exam: Present: alert, oriented X3, CN II-XII intact Psychiatric exam: Present: normal affect, normal mood Skin exam: Present: warm, dry, intact, normal color. Absent: rash Course Vital Signs 09/01/21 09/01/21 03:28 06:00 Temperature 97.5 F L Pulse Rate 62 75 Respiratory 18 Rate Blood Pressure 132/82 125/73 O2 Sat by Pulse 100 100 Oximetry - Reevaluation(s) Reevaluation #1: 09/01/21 Medical records reviewed Reevaluation #2: 09/01/21 Patient's headache is resolved currently and feels well Reevaluation #3: 09/01/21 Patient informed results questions answered Medical Decision Making - Medical Decision Making 41 male to the emergency department with headache. Patient has history of migraine headaches. Headache resolved here in the urine can be discharged home Disposition Clinical Impression: Headache, Migraine headache Disposition: HOME SELF-CARE Condition: Good Instructions (If sedation given, give patient instructions): Acute Headache (ED) Is patient prescribed a controlled substance at d/c from ED?: No Referrals: Fareed Jamil MD [Primary Care Provider] - 1-2 days Time of Disposition: 06:30
[2021-09-01] MEDS ORDERED: methylPREDNISolone SOD SUCCIN 250 MG in SODIUM CHLORIDE 0.9% 100 ML IVPB ONE (05:15)
[2021-09-01 06:15] VITALS: BP 125/73; PULSE 75
== END 2021-09-01 08:45 | disposition home or self-care (01) ==
LOC: EC 03:26
DX: G43.909 Migraine, unspecified, not intractable, without status migrainosus (principal); E78.5 Hyperlipidemia, unspecified
CPT/HCPCS: 99283; 96374; 96375; 96361; J1200; J0780; J3360; J2930; J1885

== ENCOUNTER → 2023-02-26 | Outpatient (CLI) | payer BC | END | disposition home or self-care (01) | LOC: LABWHC1 15:57 | PROVIDERS: ATTEND Otolaryngology | DX: J30.89 Other allergic rhinitis (principal) | CPT/HCPCS: 36415 ==

== ENCOUNTER 2023-07-20 09:57 | Emergency (ER) | payer BC ==
--- NOTE | 2023-07-20 10:29 | ED ---
General Adult HPI - General Chief complaint: Neuro Symptoms/Deficit Stated complaint: AMS, vision issues Time Seen by Provider: 07/20/23 10:10 Source: patient, RN notes reviewed, old records reviewed Mode of arrival: ambulatory Limitations: no limitations - History of Present Illness Initial comments: This is a 42-year-old male who presents to the emergency department complaining that over the last 3 to 4 days he has been having some visual disturbance which is consistent with what he gets with his migraines. Patient states normally he only gets it once or twice a year but over the last few days he was having it daily. Patient states he had it again today but later in the day he was in a meeting and there were words that he could see clearly but he was unable to comprehend what those words meant. Patient states that his inability to read la sted about 5 minutes and then subsided. Patient states he does have a very mild headache but not bad at all. Patient Nu[place] any numbness or weakness. Patient has any other disturbance at this time - Related Data Allergies Allergy/AdvReac Type Severity Reaction Status Date / Time almond Allergy Rash/Hives Verified 07/20/23 10:04 seasonal allergies AdvReac Unknown Nausea Uncoded 02/13/20 18:14 Review of Systems ROS Statement: Those systems with pertinent positive or pertinent negative responses have been documented in the HPI. ROS Other: All systems not noted in ROS Statement are negative. Past Medical History Past Medical History: Hyperlipidemia, Musculoskeletal Disorder Additional Past Medical History / Comment(s): MIGRAINE HEADACHE, cervical spine ruptured disc, back, gallbladder sludge History of Any Multi-Drug Resistant Organisms: None Reported Past Surgical History: Back Surgery Additional Past Surgical History / Comment(s): neck surg cervical vertebrae, steel bearing at C6, steroid injections in lumbar spine many years Past Anesthesia/Blood Transfusion Reactions: No Reported Reaction Past Psychological History: Panic Disorder Smoking Status: Never smoker Past Alcohol Use History: Occasional Past Drug Use History: Marijuana - Past Family History Father Family Medical History: Cancer Additional Family Medical History / Comment(s): Father is alive at age 70 with history of skin cancer malignant melanoma. No history of coronary artery disease. Mother Family Medical History: No Reported History Additional Family Medical History / Comment(s): A mother is alive at age 70 with back and cervical problems similar to the patient's. No coronary artery dis ease. Patient has one half-brother. Patient does not have any sisters. Patient does not have any children. General Exam - General Exam Comments Initial Comments: GENERAL: Patient is well-developed and well-nourished. Patient is nontoxic and well- hydrated and is in mild distress. ENT: Neck is soft and supple. No significant lymphadenopathy is noted. Oropharynx is clear. Moist mucous membranes. Neck has full range of motion without eliciting any pain. EYES: The sclera were anicteric and conjunctiva were pink and moist. Extraocular movements were intact and pupils were equal round and reactive to light. Eyelids were unremarkable. PULMONARY: Unlabored respirations. Good breath sounds bilaterally. No audible rales rhonchi or wheezing was noted. CARDIOVASCULAR: There is a regular rate and rhythm without any murmurs gallops or rubs. ABDOMEN: Soft and nontender with normal bowel sounds. SKIN: Skin is clear with no lesions or rashes and otherwise unremarkable. NEUROLOGIC: Patient is alert and oriented x3. Cranial nerves II through XII are grossly intact. Motor and sensory are also intact. Normal speech, volume and content. Symmetrical smile. NIH currently 0 MUSCULOSKELETAL: Normal extremities with adequate strength and full range of motion. LYMPHATICS: No significant lymphadenopathy is noted PSYCHIATRIC: Normal psychiatric evaluation. Limitations: no limitations Course Vital Signs 07/20/23 07/20/23 07/20/23 10:01 10:47 11:21 Temperature 97.7 F 98.6 F 98.4 F Pulse Rate 108 H 71 73 Respiratory 18 17 17 Rate Blood Pressure 150/87 120/92 120/90 O2 Sat by Pulse 100 100 100 Oximetry 07/20/23 07/20/23 11:30 11:45 Temperature Pulse Rate 68 73 Respiratory 18 16 Rate Blood Pressure 116/77 114/81 O2 Sat by Pulse 100 99 Oximetry Medical Decision Making - Medical Decision Making EKG is interpreted by myself but EKG shows a sinus rhythm with occasional PAC at 78 bpm parables 160 QRS is 93 QT interval is 386 QTc is 420. Patient's EKG shows no ST segment elevation or depression. Was pt. sent in by a medical professional or institution (, PA, BENEFITS REPRESENTATIVE, urgent care, hospital, or group home...) When possible be specific @ -No Did you speak to anyone other than the patient for history (EMS, parent, family, police, friend...)? What history was obtained from this source @ -No Did you review nursing and triage notes (agree or disagree)? Why? @ -I reviewed and agree with nursing and triage notes Were old charts reviewed (outside hosp., previous admission, EMS record, old EKG, old radiological studies, urgent care reports/EKG's, group home records)? Report findings @ -No old charts were reviewed Differential Diagnosis (chest pain, altered mental status, abdominal pain women, abdominal pain men, vaginal bleeding, weakness, fever, dyspnea, syncope, headache, dizziness, GI bleed, back pain, seizure, CVA, palpatations, mental health, musculoskeletal)? @ -Differential CVA Ischemic stroke, hemorrhagic stroke, brain tumor, atypical migraine, Wernicke's encephalopathy, seizure, multiple sclerosis, meningitis, encephalitis, hypoglycemia, Guillain-Morse, electrolytes disturbance, myasthenia gravis.... T his is not meant to be an all-inclusive list EKG interpreted by me (3pts min.). @ -As above X-rays interpreted by me (1pt min.). @ -None done CT interpreted by me (1pt min.). @ -CT brain showed no acute O'Joe. CT angiogram showed no acute normality. U/S interpreted by me (1pt. min.). @ -None done What testing was considered but not performed or refused? (CT, X-rays, U/S, labs)? Why? @ -None What meds were considered but not given or refused? Why? @ -None Did you discuss the management of the patient with other professionals (professionals i.e. , PA, BENEFITS REPRESENTATIVE, lab, RT, psych nurse, clinical social work therapist, blade boner, teacher, bsa officer, counter caser)? Give summary @ -No Was smoking cessation discussed for >3mins.? @ -No Was critical care preformed (if so, how long)? @ -No Were there social determinants of health that impacted care today? How? (Homelessness, low income, unemployed, alcoholism, drug addiction, transportation, low edu. Level, literacy, decrease access to med. care, detention, rehab)? @ -No Was there de-escalation of care discussed even if they declined (Discuss DNR or withdrawal of care, Hospice)? DNR status @ -No What co-morbidities impacted this encounter? (DM, HTN, Smoking, COPD, CAD, Cancer, CVA, ARF, Chemo, Hep., AIDS, mental health diagnosis, sleep apnea, morbid obesity)? @ -None Was patient admitted / discharged? Hospital course, mention meds given and route, prescriptions, significant lab abnormalities, going to OR and other pertinent info. @ -Patient had blood work done which was all within normal range patient also had a CT of the brain and a CT angio of the head and neck showed no acute normality. I recommended the patient stay in the hospital for an MRI to rule out stroke patient stated he would rather see his neurologist and get an MRI through him. Patient was informed to take an aspirin every day he agreed to. Undiagnosed new problem with uncertain prognosis? @ -No Drug Therapy requiring intensive monitoring for toxicity (Heparin, Nitro, Insulin, Cardizem)? @ -No Were any procedures done? @ -No Diagnosis/symptom? @ -Complex migraine Acute, or Chronic, or Acute on Chronic? @ -Acute Uncomplicated (without systemic symptoms) or Complicated (systemic symptoms)? @ -Complicated Side effects of treatment? @ -No Exacerbation, Progression, or Severe Exacerbation? @ -No Poses a threat to life or bodily function? How? (Chest pain, [place], [place], pneumonia, PE, COPD, DKA, ARF, appy, cholecystitis, CVA, Diverticulitis, Homicidal, Suicidal, threat to staff... and all critical care pts) @ -No - Lab Data Result diagrams: 07/20/23 10:43 07/20/23 10:43 Lab Results 07/20/23 07/20/23 07/20/23 Range/Units 10:43 10:43 10:43 WBC 6.5 (3.8-10.6) k/uL RBC 5.50 (4.30-5.90) m/uL Hgb 16.0 (13.0-17.5) gm/dL Hct 48.5 (39.0-53.0) % MCV 88.2 (80.0-100.0) fL MCH 29.2 (25.0-35.0) pg MCHC 33.1 (31.0-37.0) g/dL RDW 12.7 (11.5-15.5) % Plt Count 146 L (150-450) k/uL MPV 9.6 Neutrophils % 61 % Lymphocytes % 26 % Monocytes % 7 % Eosinophils % 1 % Basophils % 1 % Neutrophils # 4.0 (1.3-7.7) k/uL Lymphocytes # 1.7 (1.0-4.8) k/uL Monocytes # 0.5 (0-1.0) k/uL Eosinophils # 0.1 (0-0.7) k/uL Basophils # 0.1 (0-0.2) k/uL PT 10.5 (10.0-12.5) sec INR 1.0 (<1.2) APTT 24.2 (22.0-30.0) sec Sodium 138 (137-145) mmol/L Potassium 4.6 (3.5-5.1) mmol/L Chloride 106 (98-107) mmol/L Carbon Dioxide 24 (22-30) mmol/L Anion Gap 8 mmol/L BUN 18 (9-20) mg/dL Creatinine 0.94 (0.66-1.25) mg/dL Est GFR (CKD-EPI)AfAm >90 (>60 ml/min/1.73 sqM) Est GFR (CKD-EPI)NonAf >90 (>60 ml/min/1.73 sqM) Glucose 99 (74-99) mg/dL Calcium 9.8 (8.4-10.2) mg/dL Total Bilirubin 0.7 (0.2-1.3) mg/dL AST 24 (17-59) U/L ALT 24 (4-49) U/L Alkaline Phosphatase 59 (38-126) U/L Creatine Kinase 117 (55-170) U/L Troponin I (0.000-0.034) ng/mL Total Protein 8.0 (6.3-8.2) g/dL Albumin 4.7 (3.5-5.0) g/dL 07/20/23 Range/Units 10:43 WBC (3.8-10.6) k/uL RBC (4.30-5.90) m/uL Hgb (13.0-17.5) gm/dL Hct (39.0-53.0) % MCV (80.0-100.0) fL MCH (25.0-35.0) pg MCHC (31.0-37.0) g/dL RDW (11.5-15.5) % Plt Count (150-450) k/uL MPV Neutrophils % % Lymphocytes % % Monocytes % % Eosinophils % % Basophils % % Neutrophils # (1.3-7.7) k/uL Lymphocytes # (1.0-4.8) k/uL Monocytes # (0-1.0) k/uL Eosinophils # (0-0.7) k/uL Basophils # (0-0.2) k/uL PT (10.0-12.5) sec INR (<1.2) APTT (22.0-30.0) sec Sodium (137-145) mmol/L Potassium (3.5-5.1) mmol/L Chloride (98-107) mmol/L Carbon Dioxide (22-30) mmol/L Anion Gap mmol/L BUN (9-20) mg/dL Creatinine (0.66-1.25) mg/dL Est GFR (CKD-EPI)AfAm (>60 ml/min/1.73 sqM) Est GFR (CKD-EPI)NonAf (>60 ml/min/1.73 sqM) Glucose (74-99) mg/dL Calcium (8.4-10.2) mg/dL Total Bilirubin (0.2-1.3) mg/dL AST (17-59) U/L ALT (4-49) U/L Alkaline Phosphatase (38-126) U/L Creatine Kinase (55-170) U/L Troponin I <0.012 (0.000-0.034) ng/mL Total Protein (6.3-8.2) g/dL Albumin (3.5-5.0) g/dL Disposition Clinical Impression: Complicated migraine Disposition: HOME SELF-CARE Additional Instructions: Patient should take 1 aspirin every day. Patient should follow-up with his neurologist as soon as possible. Patient should return to the emergency department if symptoms worsen or other new symptoms Is patient prescribed a controlled substance at d/c from ED?: No Referrals: Fareed Jamil [Primary Care Provider] - 1-2 days Time of Disposition: 12:29
[2023-07-20] MEDS: SODIUM CHLORIDE 0.9% 500 ML 500 ML IV STA (10:41)
[2023-07-20 10:53] LABS: Basophils # (A) 0.1 k/uL (0-0.2); Basophils % (A) 1 %; Eosinophils # (A) 0.1 k/uL (0-0.7); Eosinophils % (A) 1 %; HCT 48.5 % (39.0-53.0); Lymphocytes # (A) 1.7 k/uL (1.0-4.8); Lymphocytes % (A) 26 %; MCH 29.2 pg (25.0-35.0); MCHC 33.1 g/dL (31.0-37.0); MCV 88.2 fL (80.0-100.0); Mean Platelet Volume 9.6; Monocytes # (A) 0.5 k/uL (0-1.0); Monocytes % (A) 7 %; Neutrophils % (A) 61 %; Platelet Count 146 k/uL (150-450); RDW 12.7 % (11.5-15.5); WBC 6.5 k/uL (3.8-10.6)
[2023-07-20 11:01] LABS: ALT 24 U/L (4-49); AST 24 U/L (17-59); African American GFR (CKD) >90 (>60 ml/min/1.73 sqM); Albumin 4.7 g/dL (3.5-5.0); Alkaline Phosphatase 59 U/L (38-126); Anion Gap 8 mmol/L; Blood Urea Nitrogen 18 mg/dL (9-20); Calcium 9.8 mg/dL (8.4-10.2); Carbon Dioxide 24 mmol/L (22-30); Chloride 106 mmol/L (98-107); Creatine Kinase 117 U/L (55-170); Glucose 99 mg/dL (74-99); Non-African American GFR(CKD) >90 (>60 ml/min/1.73 sqM); Potassium 4.6 mmol/L (3.5-5.1); Sodium 138 mmol/L (137-145); Total Bilirubin 0.7 mg/dL (0.2-1.3)
[2023-07-20 11:04] LABS: Partial Thromboplastin Time 24.2 sec (22.0-30.0); Prothrombin Time 10.5 sec (10.0-12.5)
--- NOTE | 2023-07-20 11:14 | CT ---
EXAMINATION TYPE: CT brain wo con CT DLP: 1092 mGycm, Automated exposure control for dose reduction was used. DATE OF EXAM: 07/20/2023 11:05 AM COMPARISON: 09/28/2018. CLINICAL INDICATION:Male, 42 years old with history of Neuro deficit, acute, stroke suspected, HEADAC HE TECHNIQUE: Brain: Axial CT images of the brain were obtained with coronal and sagittal reformats created and rev iewed. Contrast used: None. Oral contrast used: None. FINDINGS: Brain: Extra-axial spaces: No abnormal extra-axial fluid collections. Ventricular system: Within normal limits Cerebral parenchyma: No acute intraparenchymal hemorrhage or mass effect. The hollis-white junction is well differentiated. Cerebellum: Unremarkable. Mass effect: No evidence of midline shift. Intracranial vasculature: unremarkable Soft tissues: Normal. Calvarium/osseous structures: No depressed skull fracture. Paranasal sinuses and mastoid air cells: Mild scattered paranasal sinus disease. Visualized orbits: Orbital contents are intact. IMPRESSION: No acute intracranial process.
--- NOTE | 2023-07-20 11:21 | CT ---
EXAMINATION TYPE: CT angio head neck CT DLP: 659.5 mGycm, Automated exposure control for dose reduction was used. DATE OF EXAM: 07/20/2023 11:09 AM COMPARISON: 09/26/2018. CLINICAL INDICATION:Male, 42 years old with history of Neuro deficit, acute, stroke suspected; Wayne KUO TECHNIQUE: Axially acquired helical CT angiogram of the head and neck was obtained with contrast. Axi al images are supplemented with 3D reconstructions and MIP images which were post-processed at an in dependent workstation. NASCET criteria used. Contrast used:65 mL of Isovue 370 with IV Contrast, Oral contrast used: None. FINDINGS: CTA HEAD: No evidence of acute intracranial hemorrhage, mass effect, or midline shift. The ventricles, sulci, a nd cisterns are unremarkable. The visualized portions of the internal carotid arteries, middle cerebral arteries, anterior cerebral arteries, and posterior cerebral arteries are patent. The basilar and vertebral arteries are patent. CTA NECK: Right Carotid System: The common carotid artery and external carotid artery are patent. The carotid bifurcation demonstrate s no evidence of hemodynamically significant stenosis. The remaining portions of the internal carotid artery demonstrate normal size without significant narrowing. Left Carotid System: The common carotid artery and external carotid artery are patent. The carotid bifurcation demonstrate s no evidence of hemodynamically significant stenosis. The remaining portions of the internal carotid artery demonstrate normal size without significant narrowing. Vertebral arteries are patent without evidence hemodynamically significant stenosis. There is a three-vessel aortic arch. The origins of the great vessels are patent. No evidence of hemo dynamically significant stenosis. Fixation hardware in the spine IMPRESSION: 1. No evidence of dissection of the cervical internal carotid arteries or vertebral arteries or any e vidence of significant stenosis at the carotid bifurcations. 2. No evidence of intracranial high-grade stenosis or intracranial aneurysm.
--- NOTE | 2023-07-20 11:32 | XR ---
EXAMINATION TYPE: XR chest 2V DATE OF EXAM: 07/20/2023 COMPARISON: 10/04/2018 TECHNIQUE: PA and lateral views submitted. HISTORY: Altered mental status FINDINGS: The lungs are clear and there is no pneumothorax, pleural effusion, or focal pneumonia. Heart size normal and no overt failure. Osseous structures demonstrate hypertrophic and degenerative changes of the spine. Postsurgical change overlying the cervical spine. IMPRESSION: 1. No acute process.
[2023-07-20 12:14] VITALS: TEMP 98.2
[2023-07-20 12:56] VITALS: BP 109/79; PULSE 86; RESP 17
== END 2023-07-20 12:35 | disposition home or self-care (01) ==
LOC: EC 09:57
DX: G43.109 Migraine with aura, not intractable, without status migrainosus (principal); F12.90 Cannabis use, unspecified, uncomplicated; Z91.018 Allergy to other foods; Z88.8 Allergy status to other drugs, medicaments and biological substances
CPT/HCPCS: 36415; 93005; 80053; 82550; 84484; 85025; 85610; 85730; 71046; 70496; 70450; 70498; 99285; 96360; Q9967

== ENCOUNTER → 2023-08-31 | Outpatient (CLI) | payer BC ==
--- NOTE | 2023-08-31 13:59 | CT ---
EXAMINATION TYPE: CT sinus wo con DATE OF EXAM: 08/31/2023 COMPARISON: None HISTORY: Chronic sinusitis, can't breathe CT DLP: [address] of the paranasal sinuses was performed in the axial and coronal planes. Bone and soft tissue settings are submitted. The paranasal sinuses demonstrate normal aeration and development. Mild mucosal thickening right maxillary sinus at its base. Minimal mucosal thickening left maxillary sinus. A few opacified the superior ethmoid air cells. The osteal meatal units are patent bilaterally. The nasal septum is midline. No bony destructive changes are seen within the field of view. IMPRESSION: Mild chronic sinusitis changes.
== END | disposition home or self-care (01) ==
LOC: RADCTMAIN 13:33
PROVIDERS: ATTEND Otolaryngology
DX: J32.9 Chronic sinusitis, unspecified (principal)
CPT/HCPCS: 70486